=== PATIENT | female | born 1950 | race Caucasian/White ===

== ENCOUNTER 2022-04-13 15:42 | Outpatient (CLI) | payer OTHER, SELFPAY ==
--- NOTE | ~2022-04-13 | CT_ITS ---
EXAMINATION: CT abdomen pelvis wo con DATE: 04/13/2022 16:05 INDICATION: Abdominal pain. Weight loss. TECHNIQUE: Computed tomography (CT) of the abdomen and pelvis was performed without intravenous contr ast. Automated exposure control and iterative reconstruction technique were employed. The dose-length product was 1097.10 mGy-cm. COMPARISON: CT abdomen and pelvis 10/24/2011 FINDINGS: The visualized portions of the lung bases demonstrate mild atelectasis and mild chronic kayla g disease. No pleural effusion. The heart size is normal. No pericardial effusion. There are coronary artery calcifications. The liver, spleen, pancreas, adrenal glands, and kidneys are normal. There is no urolithiasis. There are no dilated loops of bowel. The appendix is normal. There are no pathologi crystal enlarged lymph nodes. There is no free intraperitoneal fluid. There is internal fixation of pro ximal right femur. There are chronic compression fractures of L1 and L5. IMPRESSION: 1. No etiology for the patient's symptoms. Reviewed, dictated and finalized at location B.
== END 2022-04-13 15:43 | disposition home or self-care (01) ==
PROVIDERS: PCP Family Medicine; Visit Provider Family Medicine
DX: R63.4 Abnormal weight loss (principal); R63.0 Anorexia; S32.019A Unspecified fracture of first lumbar vertebra, initial encounter for closed fracture; S32.059A Unspecified fracture of fifth lumbar vertebra, initial encounter for closed fracture
CPT/HCPCS: 74176

== ENCOUNTER 2022-06-25 15:00 | Outpatient (RCR) | payer OTHER, SELFPAY ==
--- NOTE | 2022-05-22 13:34 | PTOPEVAL ---
PHYSICAL THERAPY EVALUATION AND PLAN OF CARE 05-22-22 Thank you for referring Carol Beltre to [facility] for the diagnosis of dizziness. Saumya is scheduled to be seen for therapy? 0-2 x/week for 5 weeks, depending upon the severity of her vestibular symptoms. Please review, sign, date and return this plan of care CORBY. I agree with and certify that the following plan of care is medically necessary. Referring Physician Date Attending Provider: Tasha Malone MD Outpatient Past Medical History Past Medical History Source of Past Medical History Patient Neurological History Hx Neurological Disorders No Significant History Cardiovascular History Hx Hypercholesterolemia Yes: meds Hx Hypertension Yes: meds Respiratory History Hx Respiratory Disorders No Significant History Gastrointestinal History Hx Cholecystectomy Yes Hx Hernia Yes: surgical repair Musculoskeletal History Hx Back Pain Yes: intermittent Hx Orthopedic Surgery Yes: R and L knee arthroscopy; R rotator cuff repair; R elbow surgery;L wrist fx Hx Other Musculoskeletal Disorders Yes: lumbar compression fracture;R femur ORIF; Endocrine History Hx Diabetes Yes: meds HEENT History Hx Other HEENT Disorders Yes: glasses- bifocals,last eye exam 1 yr ago; issues with double vision Evaluation Information Problem Diagnosis dizziness Onset February 2022 Prior Level of Function Activity Level (Last 3 Months) Occupation retired Comments Additional Prior Level of Function indep with home and self care Comments tasks; Pain Assessment Pain Score Pain Score 0: Self Report Cervical ROM Comments cervical ROM active rotation R /L and flexion/extension- ranges WNL and no pain in neck Gait Assessment Ambulation Assistive Devices None Ambulation Distance 150 Query Text:(Feet) Ambulation Destination In Corridor Ambulation Ability Standby Assistance Additional Ambulation Comments to dept with unsteady, slow gait pattern, reaching out to [address] way railing for support; loss of balance with turning to enter the treatment room Vestibular Evaluation Past Vestibular History Back Pain,Medication Changes, Sinus/Allergy Issues,Visual Issues Medical History Comments change in diabetic med few months ago; sometimes have
--- NOTE | 2022-06-22 13:09 | PCPTNOTE ---
Patient's appointment cancelled due to staff being out of the office.
--- NOTE | 2022-06-25 15:46 | PTOPEVAL ---
PHYSICAL THERAPY DISCHARGE REPORT 06-25-22 Refer to the clinical summary below, for her status today, compared to the initial evaluation. The goals were partially achieved. She will be discharged from PT at this time. Thank you for referring Carol Beltre to [facility].? Please review, sign, date and return this Discharge report CORBY. I agree with and certify that the following plan of care is medically necessary. Referring Physician Date Attending Provider: Tasha Malone MD Subjective Information Saumya reports: only time feel Query Text:As Reported By Patient/ dizziness or maybe more off Family balance is rolling over in bed , eyes are closed and feel like head is not moving with body; when walking a straight path, feel fine, but with turning have balance issues; have not had any falls; am careful with turning, both R and L have problems maybe little more problems to L; have not gone on her stairs at home yet; continue to have sinus issues- have year round allergy problems; Pain Assessment Self Report Self Report Pain Level 0 Vestibular Testing Comments - supine/sit and sit to stand without s/s - 360' turn to L -- feel funny , like whole body not turning at the same time/ R feels better than to L - pick item up off floor- no s /s - stand and look to ceiling- loss of balance, have to concentrate to keep balance - 20' side step R, side step L , backwards, heel toe walking; - walking with turns into R and L doorways- 2x each- had 1 loss of balance to L and grabbed door frame to catch herself; - single leg standing L 3-7 sec and R 2-4 seconds - B leg press 80# x 20 reps, then reported pain in knees - standing hip exercises with red theraband R and L with 1 UE hold: hip flex, abduct and extension x 15 reps;
== END 2022-06-26 11:03 | disposition home or self-care (01) ==
LOC: ANHPT 15:00
PROVIDERS: PCP Family Medicine; Visit Provider Family Medicine
DX: R42 Dizziness and giddiness (principal)
CPT/HCPCS: 97110; 97161; 97530

== ENCOUNTER → 2022-11-12 13:38 | Outpatient (CLI) | payer OTHER, SELFPAY ==
--- NOTE | ~2022-11-12 | XR_ITS ---
AP and oblique views of the left ribs Clinical History: Pain Findings: No rib fracture is seen. Osseous alignment is anatomic. Lungs are clear, without focal cons olidation or pleural effusion. Cardiomediastinal contour is within normal limits. Soft tissues are un remarkable. Impression: No rib fracture is seen. Reviewed, dictated and finalized at location [] E OFFICER Impression: No rib fracture is seen.
== END ==
PROVIDERS: PCP Family Medicine; Visit Provider Physician Assistant
DX: R07.81 Pleurodynia (principal)
CPT/HCPCS: 71100

== ENCOUNTER 2024-05-31 14:51 | Outpatient (CLI) | payer OTHER, SELFPAY ==
--- NOTE | ~2024-05-31 | DEXA_ITS ---
? Bone Density Report? Name:? HAWK STEELE A Patient ID:??? [id number] Age:? 73 Sex:? Female Ethnicity:? White Date of : 1950 Indication: postmenopausal; screening for osteoporosis; height loss; prior fracture; hysterectomy; Referring Provider: JOHNMARTIN Study: Bone densitometry was performed. Exam Date: May 31, 2024 Accession number: [id number] Bone Density: Region? BMD??? T-score? Z-score?? Classification AP Spine(L2, L3, L4)? 1.327??? 2.3?4.8? Normal Femoral Neck (Left)? 0.693?? -1.4? 0.7? Osteopenia Total Hip (Left)? 1.007?? ?0.5? 2.4? Normal World Health Organization criteria for BMD impression classify patients as: Normal (T-score at or above -1.0), Osteopenia (T-score between -1.0 and -2.5), or Osteoporosis (T-score at or below -2.5). 10-year Fracture Risk: FRAX not reported because: ? Prior hip or vertebral fracture Clinical Information Provided by Patient: Have had a previous hip or vertebral fracture Has had a low trauma fracture Has used the following medications: Vitamin D Has the following medical conditions: Hysterectomy Patient maximum height was 67 Menopause Age: 58 No regular weight bearing exercise Drinks caffeinated beverages Onset of menses at age 10 Number of children 7 Impression: The patient has low bone mass, based on the Left Femoral Neck T- score. The patient has risk factors, including: previous fracture. Discussion: INCREASED RISK OF FRACTURE DUE TO HISTORY OF FRACTURE. The patient's previous fracture puts the patient at high risk of a future fracture. In untreated patients, the risk of osteoporotic fracture increases approximately two-fold for each 1.0 SD decrease in T-score.? Low bone density is not the only risk factor for fracture; also consider factors such as patient's age, frailty or poor health, risk of falling, risk of injury, previous osteoporotic fracture, family history of osteoporosis, cigarette smoking, low body weight, etc.? Not everyone with a low trauma fracture has osteoporosis; osteomalacia and other metabolic bone disorders should also be considered. Patients who have osteoporosis should be evaluated for specific diseases and conditions (secondary causes) that may cause or contribute to bone loss and fracture risk. National Osteoporosis Foundation (NOF) recommends pharmacologic intervention for patients with a prior hip or vertebral fracture regardless of BMD T-score. The patient should follow a healthful lifestyle (good nutrition with adequate calcium and vitamin D, and appropriate weight-bearing exercise). Follow-Up: Consider a repeat BMD and Vertebral Fracture Assessment (VFA) exam in 2 years or sooner if medically necessary, to reassess this patie
== END 2024-05-31 14:52 | disposition home or self-care (01) ==
PROVIDERS: PCP Family Medicine; Visit Provider Internal Medicine Endocrinology, Diabetes & Metabolism
DX: Z78.0 Asymptomatic menopausal state (principal); M85.88 Other specified disorders of bone density and structure, other site
CPT/HCPCS: 77080

== ENCOUNTER 2024-06-16 11:20 | Outpatient (CLI) | payer OTHER, SELFPAY ==
--- NOTE | ~2024-06-16 | CT_ITS ---
EXAMINATION: CT abdomen wo/w con DATE: 06/16/2024 12:21 INDICATION: Adrenal gland disorder. Type 2 diabetes. TECHNIQUE: Computed tomography (CT) of the abdomen was performed without and with 100 mL Omnipaque-35 0 intravenous contrast. Automated exposure control and iterative reconstruction technique were employ ed. The dose-length product was 2425.39 mGy-cm. COMPARISON: CT dated 04/13/2022 FINDINGS: Mild dependent atelectasis in the right lower lobe with additional unchanged scattered atelectasis/sc arring at the bilateral lung bases. Heart size is normal. Atherosclerotic coronary artery calcificati on. Aortic valve calcification. No pericardial or pleural effusion. Diffuse hepatic steatosis. Unchan ged mild intra and extra hepatic biliary ductal dilation likely related to prior cholecystectomy. Spl een, pancreas and bilateral adrenal glands are normal. There are couple subcentimeter cysts at the lo wer pole of the right kidney. Visualized portion of the bowels including the base of the appendix rupesh ear normal. No pathologically enlarged abdominal lymphadenopathy. Unchanged chronic L1 compression fr acture. There are additional chronic superior endplate compression fractures at T10, T11 and T12 whic h are new since the prior study. IMPRESSION: 1. Normal bilateral adrenal glands. 2. Diffuse hepatic steatosis. Reviewed, dictated and finalized at location A.
[2024-06-16 11:40] LABS: Estimated Glomerular Filt Rate 44
== END 2024-06-16 11:21 ==
PROVIDERS: PCP Physician Assistant; Visit Provider Internal Medicine Endocrinology, Diabetes & Metabolism
DX: E11.65 Type 2 diabetes mellitus with hyperglycemia (principal); E27.9 Disorder of adrenal gland, unspecified; K76.0 Fatty (change of) liver, not elsewhere classified
CPT/HCPCS: 74170; Q9967

== ENCOUNTER 2024-10-12 12:52 | Outpatient (CLI) | payer OTHER, SELFPAY ==
--- NOTE | ~2024-10-12 | MR_ITS ---
EXAMINATION: MR brain/brain stem wo/w con DATE: 10/12/2024 13:53 INDICATION: Benign neoplasm of pituitary gland. TECHNIQUE: Magnetic resonance imaging (MRI) of the brain and brainstem was performed without and with 19 mL MultiHance intravenous contrast. COMPARISON: None. FINDINGS: The pituitary is normal in size with height of 7 mm . There are scattered areas of nonspeci fic increased T2-weighted signal intensity in the cerebral white matter, which is within normal limit s for the patient's age. There is a 1.8 x 1.4 cm enhancing mass in right cerebellopontine angle with low signal on T1 and T2-weighted imaging. There is a 2.2 x 1.3 cm enhancing extra-axial mass overlyin g left frontal lobe abutting the falx, consistent with a meningioma. There is an 8 x 4 mm enhancing e xtra-axial mass medial to right occipital lobe abutting the falx, consistent with a meningioma. There is no acute ischemic infarct or intracranial hemorrhage. The ventricles are normal in size. The orbi ts are normal. The paranasal sinuses are clear. The mastoid air cells are normal. IMPRESSION: 1. Normal pituitary. 2. 1.8 cm mass in right cerebellopontine angle, most likely a meningioma. 3. 2.2 cm parafalcine meningioma abutting left frontal lobe. 4. 8 mm parafalcine meningioma abutting right occipital lobe. Reviewed, dictated and finalized at location A. RED TRANSPORT SERVICE MANAGER
== END 2024-10-12 12:53 | disposition home or self-care (01) ==
LOC: MICIMG 12:53
PROVIDERS: PCP Physician Assistant; Visit Provider Internal Medicine Endocrinology, Diabetes & Metabolism
DX: D32.0 Benign neoplasm of cerebral meninges (principal); D35.2 Benign neoplasm of pituitary gland
CPT/HCPCS: 70553; A9577

== ENCOUNTER 2025-01-16 08:53 | Outpatient (CLI) | payer OTHER, SELFPAY ==
--- NOTE | ~2025-01-16 | MR_ITS ---
EXAMINATION: MR brain/brain stem wo/w con DATE: 01/16/2025 09:32 INDICATION: Meningiomas. TECHNIQUE: Magnetic resonance imaging (MRI) of the brain and brainstem was performed without and with 15 mL MultiHance intravenous contrast. COMPARISON: Brain MRI 10/12/2024 FINDINGS: There are scattered areas of nonspecific increased T2-weighted signal intensity in the cere bral white matter, which is within normal limits for the patient's age. There is a 1.8 x 1.4 cm enhan cing mass in right cerebellopontine angle with low signal on T1 and T2-weighted imaging. There is a 2 .2 x 1.3 cm enhancing extra-axial mass overlying left frontal lobe abutting the falx, consistent with a meningioma. There is an 8 x 4 mm enhancing extra-axial mass medial to right occipital lobe abuttin g the falx, consistent with a meningioma. There is no acute ischemic infarct or intracranial hemorrha ge. The ventricles are normal in size. The orbits are normal. There is mild mucosal thickening in the paranasal sinuses. The mastoid air cells are normal. IMPRESSION: 1. Stable 1.8 cm mass in right cerebellopontine angle, most likely a meningioma. 2. 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 3. Stable 8 mm parafalcine meningioma abutting right occipital lobe. Reviewed, dictated and finalized at location A. GLIDING INSTRUCTOR IMPRESSION: 1. Stable 1.8 cm mass in right cerebellopontine angle, most likely a meningioma . 2. 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 3. Stable 8 mm parafalcine meningioma abutting right occipital lobe.
== END 2025-01-16 08:54 | disposition home or self-care (01) ==
LOC: MICIMG 08:54
PROVIDERS: PCP Physician Assistant; Visit Provider Neurological Surgery
DX: D32.0 Benign neoplasm of cerebral meninges (principal)
CPT/HCPCS: 70553; A9577

== ENCOUNTER 2025-06-20 10:39 | Outpatient (CLI) | payer OTHER, SELFPAY ==
--- NOTE | ~2025-06-20 | US_ITS ---
US renal BI 06/20/2025 11:09 Procedure: Realtime transabdominal ultrasound of the kidneys and bladder. Indication: Abnormal renal function tests Comparison: No prior studies for comparison. Findings: Renal echotexture is normal bilaterally without hydronephrosis, contour deforming mass or r enal calculus. There is a right renal cyst measuring 8 mm. The right kidney measures 9.9 cm and left kidney measures 11.2 cm. Bladder within normal limits. Impression: 1: Right renal cyst measuring 8 mm. Reviewed, dictated and finalized at location A. Impression: 1: Right renal cyst measuring 8 mm.
== END 2025-06-20 10:40 | disposition home or self-care (01) ==
LOC: MICIMG 10:39
PROVIDERS: PCP Physician Assistant; Visit Provider Internal Medicine Nephrology
DX: R94.4 Abnormal results of kidney function studies (principal); N28.1 Cyst of kidney, acquired
CPT/HCPCS: 76775

== ENCOUNTER 2025-10-16 09:43 | Outpatient (CLI) | payer OTHER, SELFPAY ==
--- NOTE | ~2025-10-16 | US_ITS ---
ULTRASOUND ABDOMEN LIMITED (RIGHT UPPER QUADRANT) Clinical History: Fatty liver Comparison: CT abdomen pelvis 06/16/2024 Technique: Right upper quadrant sonography Findings: Liver: Enlarged. Echogenic. No intrahepatic biliary ductal dilatation. Normal hepatopedal flow main portal vein. Common Duct: Normal caliber. 6 mm. Gallbladder: Removed. Pancreas: Unremarkable. IMPRESSION: 1. No acute findings. 2. Hepatomegaly, with steatosis and/or hepatocellular disease. Reviewed, dictated and finalized at location R. S CLASSIFIER
== END 2025-10-16 09:44 | disposition home or self-care (01) ==
LOC: MICIMG 09:43
PROVIDERS: PCP Physician Assistant; Visit Provider Internal Medicine Endocrinology, Diabetes & Metabolism
DX: K76.0 Fatty (change of) liver, not elsewhere classified (principal)
CPT/HCPCS: 76705

== ENCOUNTER 2025-10-23 17:37 | Emergency (ER) | payer OTHER, MEDICARE, SELFPAY ==
--- OUTSIDE RECORDS SUMMARY | 2025-03-12 06:40 | XMS_ITS ---
Author Organization [facility] Address [address] [place] [address] Care Team Providers Care Wet Finisher Wool Name Role Phone Sarah Kebede [phone] REASON FOR VISIT 1 month f/u Encounters Encounter Location Date Provider Diagnosis [facility]MO Dr. Kebede [address] [place] [id number] 03/12/2025 Sarah Kebede Plan Of Treatment Next Appt Details Provider Name:Sarah Kebede, 03:00:00 PM, [address] [place] [address], [id number], Progress Notes * CHARLI STEELEHDOB: 8 (75 yo F)Acc No.[id number]:03/12/2025 Progress Notes Patient: HAWK HAYES Provider: Larisa Kebede MD :1950 A ge:74 Y S ex:Female Date:03/12/2025 Address:[address] [place] [address] [id number] Subjective: * Chief Complaints: * 1 month f/u * Electronic signature of Josse Kebede MD on 10/23/2025 at 05:39 PM EXPERIMENTAL WORKER Sign off status: Pending * Provider: Larisa Kebede MD Date: 0 03/12/2025 Generated for Printi ng/Faxing/eTransmitting on: 1 12/23/2024 05:39 PM EXPERIMENTAL WORKER
--- NOTE | ~2025-10-23 | CT_ITS ---
EXAMINATION: CT abdomen pelvis w con DATE: 10/23/2025 19:05 INDICATION: Abdominal pain, constipation. TECHNIQUE: Computed tomography (CT) of the abdomen and pelvis was performed without intravenous contrast. Automated exposure control and iterative reconstruction technique were employed. The dose-length product was 469.99 mGy-cm. COMPARISON: Ultrasound upper abdomen 10/16/2025. CT dated 06/16/2024. FINDINGS: Lung bases do not show acute findings. No focal lesions of liver and spleen. Gallbladder is absent. Pancreas and kidneys do not show acute findings. Moderate atherosclerotic aorta. No evidence of small bowel obstruction. Fecal impaction of the rectosigmoid colon. Osteopenic vertebrae. Compression fractures of L5 and L1 vertebrae of undetermined age. IMPRESSION: 1. No acute findings noted in the upper abdomen and pelvis. 2. Significant fecal impaction of the rectosigmoid colon. 3. Osteopenic vertebrae. Compression fractures of L1 and L5 vertebrae of undetermined age. Reviewed, dictated and finalized at location [facility] IMPRESSION: 1. No acute findings noted in the upper abdomen and pelvis. 2. Significant fecal impaction of the rectosigmoid colon. 3. Osteopenic vertebrae. Compression fractures of L1 and L5 vertebrae of undete rmined age.
[2025-10-23 17:39] VITALS: BP 183/97; PULSE 91; RESP 16; TEMP 36.5; O2SAT 99
--- OUTSIDE RECORDS SUMMARY | 2025-10-23 17:40 | XMS_ITS | Patient Health Record ---
Author Organization [facility] Address [address] [place], [place] [address] Care Team Providers Care Soap Mixer Name Role Phone Sarah Kebede Unavailable [phone] Allergies Allergen (clinical drug ingredient) Drug/Non Drug Allergy documented on EMR Reaction Allergy Type Onset Date Status ADHESIVE TAPE Unknown Allergy Active Results Component Value Reference Range Flag Notes .LIPID PANEL, STANDARD (7600 ) Reviewed date:09/24/2025 10:00:02 AM Interpretation: Performing Lab:[facility]-Acbxyj60386 Shivani Vera, KslorfSS[address] Kayli Banks MD Notes/Report: FASTING:YES FASTING: YES CHOLESTEROL, TOTAL 136 <200 mg/dL N HDL CHOLESTEROL 39 > OR = 50 mg/dL L TRIGLYCERIDES 221 <150 mg/dL H If a non-fasting specimen was collected, consider repeat triglyceride testing on a fasting specimen if clinically indicated. Hernández et al. J. of Clin. Lipidol. 2015;9:129-169. LDL-CHOLESTEROL 69 N Reference range: <100 Desirable range <100 mg/dL for primary prevention; <70 mg/dL for patients with CHD or diabetic patients with > or = 2 CHD risk factors. LDL-C is now calculated using the David-Ja calculation, which is a validated novel method providing better accuracy than the Friedewald equation in the estimation of LDL-C. David SS et al. JESSICA. 2013;310(19): 3650-9839 (http://ideeli.[facility]/faq/AYZ016) CHOL/HDLC RATIO 3.5 <5.0 (calc) N NON HDL CHOLESTEROL 97 <130 mg/dL (calc) N For patients with diabetes plus 1 major ASCVD risk factor, treating to a non-HDL-C goal of <100 mg/dL (LDL-C of <70 mg/dL) is considered a therapeutic option. .COMPREHENSIVE METABOLIC VILLALTA (55314) [facility] Reviewed date:09/24/2025 09:59:56 AM Interpretation: Performing Lab:HELEN [facility]-Phwupr91800 Shivani Farooq, YvolqdUL[address] Kayli Banks MD Notes/Report: FASTING:YES FASTING: YES GLUCOSE 130 65-99 mg/dL H Fasting reference interval For someone without known diabetes, a glucose value >125 mg/dL indicates that they may have diabetes and this should be confirmed with a follow-up test. UREA NITROGEN (BUN) 55 7-25 mg/dL H CREATININE 2.70 0.60-1.00 mg/dL H EGFR 18 > OR = 60 mL/min/1.73m2 L BUN/CREATININE RATIO 20 6-22 (calc) N SODIUM 127 135-146 mmol/L L POTASSIUM 4.1 3.5-5.3 mmol/L N CHLORIDE 89 98-110 mmol/L L CARBON DIOXIDE 25 20-32 mmol/L N CALCIUM 9.4 8.6-10.4 mg/dL N PROTEIN, TOTAL 6.9 6.1-8.1 g/dL N ALBUMIN 4.3 3.6-5.1 g/dL N GLOBULIN 2.6 1.9-3.7 g/dL (calc) N ALBUMIN/GLOBULIN RATIO 1.7 1.0-2.5 (calc) N BILIRUBIN, TOTAL 0.4 0.2-1.2 mg/dL N ALKALINE PHOSPHATASE 41 37-153 U/L N AST 15 10-35 U/L N ALT 19 6-29 U/L N .CBC (INCLUDES DIFF/PLT) (63 99) Reviewed date:09/24/2025 09:59:49 AM Interpretation: Performing Lab:HE[facility]-Wohexk82817 Shivani Farooq, WxatfxBW[address] Kayli Banks MD Notes/Report: FASTING:YES FASTING: YES WHITE BLOOD CELL COUNT 9.0 3.8-10.8 Thousand/uL N RED BLOOD CELL COUNT 4.32 3.80-5.10 Million/uL N HEMOGLOBIN 12.9 11.7-15.5 g/dL N HEMATOCRIT 39.1 35.0-45.0 % N MCV 90.5 80.0-100.0 fL N MCH 29.9 27.0-33.0 pg N MCHC 33.0 32.0-36.0 g/dL N For adults, a slight decrease in the calculated MCHC value (in the range of 30 to 32 g/dL) is most likely not clinically significant; however, it should be interpreted with caution in correlation with other red cell parameters and the patient's clinical condition. RDW 12.1 11.0-15.0 % N PLATELET COUNT 221 140-400 Thousand/uL N MPV 11.6 7.5-12.5 fL N ABSOLUTE NEUTROPHILS 6624 5250-9583 cells/uL N ABSOLUTE LYMPHOCYTES 9043 233-3569 cells/uL N ABSOLUTE MONOCYTES 549 200-950 cells/uL N ABSOLUTE EOSINOPHILS 36 15-500 cells/uL N ABSOLUTE BASOPHILS 63 0-200 cells/uL N NEUTROPHILS 73.6 N LYMPHOCYTES 19.2 N MONOCYTES 6.1 N EOSINOPHILS 0.4 N BASOPHILS 0.7 N .HEMOGLOBIN A1c (496) Reviewed date:09/24/2025 12:26:25 PM Interpretation: Performing Lab:[facility] [address] [facility]kc[facility]ID[address] Kayli Banks Notes/Report: FASTING:YES FASTING: YES HEMOGLOBIN A1c 6.0 <5.7 % of total Hgb H For someone without known diabetes, a hemoglobin A1c value between 5.7% and 6.4% is consistent with prediabetes and should be confirmed with a follow-up test. For someone with known diabetes, a value <7% indicates that their diabetes is well controlled. A1c targets should be individualized based on duration of diabetes, age, comorbid conditions, and other considerations. This assay result is consistent with an increased risk of diabetes. Currently, no consensus exists regarding use of hemoglobin A1c for diagnosis of diabetes for children. VITAMIN B12/FOLATE, SERUM PA JERMAINE (7019) Reviewed date:09/24/2025 09:59:32 AM Interpretation: Performing Lab:HELEN [facility]-Dwensc21887 Shivani Farooq, BdglphRQ[address] Kayli Banks MD Notes/Report: FASTING:YES FASTING: YES VITAMIN B12 7857 631-8261 pg/mL H FOLATE, SERUM 9.6 N Reference Range Low: <3.4 Borderline: 3.4-5.4 Normal: >5.4 T4, FREE (866) Reviewed date:09/24/2025 09:59:43 AM Interpretation: Performing Lab:Kristy [facility]-Mgjhdh90733 Shivani Farooq, LhkbddTX[address] Kayli Banks MD Notes/Report: FASTING:YES FASTING: YES T4, FREE 1.4 0.8-1.8 ng/dL N TSH (899) Reviewed date:09/24/2025 09:59:37 AM Interpretation: Performing Lab:Kristy [facility]-Mjozul59642Ilan Farooq, MdedhqWT[address] Kayli Banks MD Notes/Report: FASTING:YES FASTING: YES TSH 2.33 0.40-4.50 mIU/L N T3, FREE (55790) Reviewed date:09/24/2025 09:59:27 AM Interpretation: Performing Lab:Kristy [facility]-Lulu Farooq, ZlpajgVY[address] Kayli Banks MD Notes/Report: FASTING:YES FASTING: YES T3, FREE 2.7 2.3-4.2 pg/mL N COMPREHENSIVE METABOLIC PANE L Reviewed date:11/14/2024 09:58:13 AM Interpretation: Performing Lab:Kristy [facility]-[place], [address] Shivani Farooq, HELEN [place], [address] Kayli Banks MD Notes/Report: FASTING:YES COLLECTION KIT GIVEN TO PATIENT. PATIENT ADVISED TO RETURN. FASTING: YES Fasting reference interval For someone without known diabetes, a glucose value >125 mg/dL indicates that they may have diabetes and this should be confirmed with a follow-up test. GLUCOSE 166 65-99 mg/dL H UREA NITROGEN (BUN) 32 7-25 mg/dL H CREATININE 0.98 0.60-1.00 mg/dL N EGFR 60 > OR = 60 mL/min/1.73m2 N BUN/CREATININE RATIO 33 6-22 (calc) H SODIUM 136 135-146 mmol/L N POTASSIUM 4.7 3.5-5.3 mmol/L N CHLORIDE 99 98-110 mmol/L N CARBON DIOXIDE 26 20-32 mmol/L N CALCIUM 10.0 8.6-10.4 mg/dL N PROTEIN, TOTAL 7.1 6.1-8.1 g/dL N ALBUMIN 4.5 3.6-5.1 g/dL N GLOBULIN 2.6 1.9-3.7 g/dL (calc) N ALBUMIN/GLOBULIN RATIO 1.7 1.0-2.5 (calc) N BILIRUBIN, TOTAL 0.5 0.2-1.2 mg/dL N ALKALINE PHOSPHATASE 51 37-153 U/L N AST 11 10-35 U/L N ALT 14 6-29 U/L N T3, FREE Reviewed date:11/14/2024 09:58:13 AM Interpretation: Performing Lab:Kristy C[facility]ES, [address] [place], [address] Kayli Banks MD Notes/Report: FASTING:YES COLLECTION KIT GIVEN TO PATIENT. PATIENT ADVISED TO RETURN. FASTING: YES T3, FREE 2.8 2.3-4.2 pg/mL N HEMOGLOBIN A1c Reviewed date:11/14/2024 09:58:13 AM Interpretation: Performing Lab:[facility], [address], [place], [address] Kayli Banks Notes/Report: FASTING:YES COLLECTION KIT GIVEN TO PATIENT. PATIENT ADVISED TO RETURN. FASTING: YES For someone without known diabetes, a hemoglobin A1c value of 6.5% or greater indicates that they may have diabetes and this should be confirmed with a follow-up test. For someone with known diabetes, a value <7% indicates that their diabetes is well controlled and a value greater than or equal to 7% indicates suboptimal control. A1c targets should be individualized based on duration of diabetes, age, comorbid conditions, and other considerations. Currently, no consensus exists regarding use of hemoglobin A1c for diagnosis of diabetes for children. HEMOGLOBIN A1c 7.9 <5.7 % of total Hgb H CBC (INCLUDES DIFF/PLT) Reviewed date:11/14/2024 09:58:13 AM Interpretation: Performing Lab:Kristy [facility], [address] [place], [address] Kayli Banks MD Notes/Report: FASTING:YES COLLECTION KIT GIVEN TO PATIENT. PATIENT ADVISED TO RETURN. FASTING: YES For adults, a slight decrease in the calculated MCHC value (in the range of 30 to 32 g/dL) is most likely not clinically significant; however, it should be interpreted with caution in correlation with other red cell parameters and the patient's clinical condition. WHITE BLOOD CELL COUNT 13.3 3.8-10.8 Thousand/uL H RED BLOOD CELL COUNT 4.85 3.80-5.10 Million/uL N HEMOGLOBIN 13.7 11.7-15.5 g/dL N HEMATOCRIT 43.7 35.0-45.0 % N MCV 90.1 80.0-100.0 fL N MCH 28.2 27.0-33.0 pg N MCHC 31.4 32.0-36.0 g/dL L RDW 12.8 11.0-15.0 % N PLATELET COUNT 212 140-400 Thousand/uL N MPV 12.2 7.5-12.5 fL N ABSOLUTE NEUTROPHILS 9563 6150-1998 cells/uL H ABSOLUTE LYMPHOCYTES 2607 850-3900 cells/uL N ABSOLUTE MONOCYTES 758 200-950 cells/uL N ABSOLUTE EOSINOPHILS 306 15-500 cells/uL N ABSOLUTE BASOPHILS 67 0-200 cells/uL N NEUTROPHILS 71.9 N LYMPHOCYTES 19.6 N MONOCYTES 5.7 N EOSINOPHILS 2.3 N BASOPHILS 0.5 N MICROALBUMIN, RANDOM URINE ( W/CREATININE) Reviewed date:11/14/2024 09:58:13 AM Interpretation: Performing Lab:[place], [facility]-[place], [address] [place], [address] Kayli Banks MD Notes/Report: SPLIT 11/13/2024 FROM [id number] Reference Range: Reference Range Not established The ADA defines abnormalities in albumin excretion as follows: Albuminuria Category Result (mg/g creatinine) Normal to Mildly increased <30 Moderately increased 30-299 Severely increased > OR = 300 The ADA recommends that at least two of three specimens collected within a 3-6 month period be abnormal before considering a patient to be within a diagnostic category. CREATININE, RANDOM URINE 46 20-275 mg/dL N ALBUMIN, URINE 4.0 See Note: mg/dL N ALBUMIN/CREATININE RATIO, RANDOM URINE 87 <30 mg/g creat H LIPID PANEL Reviewed date:11/14/2024 09:58:13 AM Interpretation: Performing Lab:[facility], [address] [address] [facility] [place], [address] Kayli Banks MD Notes/Report: FASTING:YES COLLECTION KIT GIVEN TO PATIENT. PATIENT ADVISED TO RETURN. FASTING: YES If a non-fasting specimen was collected, consider repeat triglyceride testing on a fasting specimen if clinically indicated. Edgar et al. J. of Clin. Lipidol. 2015;9:129-169. Reference range: <100 Desirable range <100 mg/dL for primary prevention; <70 mg/dL for patients with CHD or diabetic patients with > or = 2 CHD risk factors. LDL-C is now calculated using the David-Peres calculation, which is a validated novel method providing better accuracy than the Friedewald equation in the estimation of LDL-C. David SS et al. JESSICA. 2013;310(19): 7856-3979 (http://ideeli.[employer]/faq/MUH702) For patients with diabetes plus 1 major ASCVD risk factor, treating to a non-HDL-C goal of <100 mg/dL (LDL-C of <70 mg/dL) is considered a therapeutic option. CHOLESTEROL, TOTAL 168 <200 mg/dL N HDL CHOLESTEROL 39 > OR = 50 mg/dL L TRIGLYCERIDES 235 <150 mg/dL H LDL-CHOLESTEROL 96 N CHOL/HDLC RATIO 4.3 <5.0 (calc) N NON HDL CHOLESTEROL 129 <130 mg/dL (calc) N T4, FREE Reviewed date:11/14/2024 09:58:13 AM Interpretation: Performing Lab:[facility], [address] [place], [address] Kayli Banks MD Notes/Report: FASTING:YES COLLECTION KIT GIVEN TO PATIENT. PATIENT ADVISED TO RETURN. FASTING: YES T4, FREE 1.1 0.8-1.8 ng/dL N TSH Reviewed date:11/14/2024 09:58:13 AM Interpretation: Performing Lab:[facility], [address] [place], [address] Kayli Banks MD Notes/Report: FASTING:YES COLLECTION KIT GIVEN TO PATIENT. PATIENT ADVISED TO RETURN. FASTING: YES TSH 2.12 0.40-4.50 mIU/L N COMPREHENSIVE METABOLIC PANE L Reviewed date:12/18/2024 08:38:05 AM Interpretation: Performing Lab:Kristy [facility]-[place], [address] [place], [address] Kayli Banks MD Notes/Report: Fasting reference interval For someone without known diabetes, a glucose value between 100 and 125 mg/dL is consistent with prediabetes and should be confirmed with a follow-up test. GLUCOSE 122 65-99 mg/dL H UREA NITROGEN (BUN) 24 7-25 mg/dL N CREATININE 1.55 0.60-1.00 mg/dL H EGFR 35 > OR = 60 mL/min/1.73m2 L BUN/CREATININE RATIO 15 6-22 (calc) N SODIUM 141 135-146 mmol/L N POTASSIUM 4.6 3.5-5.3 mmol/L N CHLORIDE 103 98-110 mmol/L N CARBON DIOXIDE 21 20-32 mmol/L N CALCIUM 9.9 8.6-10.4 mg/dL N PROTEIN, TOTAL 6.8 6.1-8.1 g/dL N ALBUMIN 4.4 3.6-5.1 g/dL N GLOBULIN 2.4 1.9-3.7 g/dL (calc) N ALBUMIN/GLOBULIN RATIO 1.8 1.0-2.5 (calc) N BILIRUBIN, TOTAL 0.4 0.2-1.2 mg/dL N ALKALINE PHOSPHATASE 42 37-153 U/L N AST 15 10-35 U/L N ALT 15 6-29 U/L N .COMPREHENSIVE METABOLIC VILLALTA EL (21331) CMP Reviewed date:01/24/2025 10:35:15 PM Interpretation: Performing Lab:HE[facility]-Ybwkxx87965 Shivani Farooq, KafsblUQ[address] Kayli Banks MD Notes/Report: GLUCOSE 126 65-99 mg/dL H Fasting reference interval For someone without known diabetes, a glucose value >125 mg/dL indicates that they may have diabetes and this should be confirmed with a follow-up test. UREA NITROGEN (BUN) 27 7-25 mg/dL H CREATININE 2.04 0.60-1.00 mg/dL H EGFR 25 > OR = 60 mL/min/1.73m2 L BUN/CREATININE RATIO 13 6-22 (calc) N SODIUM 139 135-146 mmol/L N POTASSIUM 4.4 3.5-5.3 mmol/L N CHLORIDE 98 98-110 mmol/L N CARBON DIOXIDE 28 20-32 mmol/L N CALCIUM 9.9 8.6-10.4 mg/dL N PROTEIN, TOTAL 6.9 6.1-8.1 g/dL N ALBUMIN 4.1 3.6-5.1 g/dL N GLOBULIN 2.8 1.9-3.7 g/dL (calc) N ALBUMIN/GLOBULIN RATIO 1.5 1.0-2.5 (calc) N BILIRUBIN, TOTAL 0.5 0.2-1.2 mg/dL N ALKALINE PHOSPHATASE 47 37-153 U/L N AST 14 10-35 U/L N ALT 13 6-29 U/L N .COMPREHENSIVE METABOLIC VILLALTA EL (61502) CMP Reviewed date:07/04/2025 11:24:19 AM Interpretation: Performing Lab:HELEN, [facility]-Ckmmna96693 Shivani Farooq, SzightFB[address] Kayli Banks MD Notes/Report: GLUCOSE 122 65-99 mg/dL H Fasting reference interval For someone without known diabetes, a glucose value between 100 and 125 mg/dL is consistent with prediabetes and should be confirmed with a follow-up test. UREA NITROGEN (BUN) 43 7-25 mg/dL H CREATININE 1.53 0.60-1.00 mg/dL H EGFR 35 > OR = 60 mL/min/1.73m2 L BUN/CREATININE RATIO 28 6-22 (calc) H SODIUM 135 135-146 mmol/L N POTASSIUM 4.4 3.5-5.3 mmol/L N CHLORIDE 99 98-110 mmol/L N CARBON DIOXIDE 27 20-32 mmol/L N CALCIUM 9.3 8.6-10.4 mg/dL N PROTEIN, TOTAL 6.4 6.1-8.1 g/dL N ALBUMIN 4.1 3.6-5.1 g/dL N GLOBULIN 2.3 1.9-3.7 g/dL (calc) N ALBUMIN/GLOBULIN RATIO 1.8 1.0-2.5 (calc) N BILIRUBIN, TOTAL 0.4 0.2-1.2 mg/dL N ALKALINE PHOSPHATASE 39 37-153 U/L N AST 12 10-35 U/L N ALT 13 6-29 U/L N .COMPREHENSIVE METABOLIC VILLALTA EL (11475) [facility] Reviewed date:02/03/2025 10:54:16 AM Interpretation: Performing Lab:HELEN [facility]-Iqfgka73307 Shivani Farooq, LblkknQY[address] Kayli Banks MD Notes/Report: GLUCOSE 125 65-99 mg/dL H Fasting reference interval For someone without known diabetes, a glucose value between 100 and 125 mg/dL is consistent with prediabetes and should be confirmed with a follow-up test. UREA NITROGEN (BUN) 26 7-25 mg/dL H CREATININE 1.73 0.60-1.00 mg/dL H EGFR 30 > OR = 60 mL/min/1.73m2 L BUN/CREATININE RATIO 15 6-22 (calc) N SODIUM 137 135-146 mmol/L N POTASSIUM 4.0 3.5-5.3 mmol/L N CHLORIDE 98 98-110 mmol/L N CARBON DIOXIDE 26 20-32 mmol/L N CALCIUM 10.0 8.6-10.4 mg/dL N PROTEIN, TOTAL 6.7 6.1-8.1 g/dL N ALBUMIN 4.2 3.6-5.1 g/dL N GLOBULIN 2.5 1.9-3.7 g/dL (calc) N ALBUMIN/GLOBULIN RATIO 1.7 1.0-2.5 (calc) N BILIRUBIN, TOTAL 0.4 0.2-1.2 mg/dL N ALKALINE PHOSPHATASE 40 37-153 U/L N AST 13 10-35 U/L N ALT 11 6-29 U/L N .HEMOGLOBIN A1c (496) Reviewed date:02/03/2025 10:54:16 AM Interpretation: Performing Lab:[facility] [facility]ltkgeeSH[address] Kayli Banks Notes/Report: HEMOGLOBIN A1c 7.6 <5.7 % of total Hgb H For someone without known diabetes, a hemoglobin A1c value of 6.5% or greater indicates that they may have diabetes and this should be confirmed with a follow-up test. For someone with known diabetes, a value <7% indicates that their diabetes is well controlled and a value greater than or equal to 7% indicates suboptimal control. A1c targets should be individualized based on duration of diabetes, age, comorbid conditions, and other considerations. Currently, no consensus exists regarding use of hemoglobin A1c for diagnosis of diabetes for children. T4, FREE (866) Reviewed date:02/03/2025 10:54:16 AM Interpretation: Performing Lab:Kristy CERVANTES-Zpepiw89777 Shivani Farooq, PlapytSS[address] Kayli Banks MD Notes/Report: T4, FREE 1.1 0.8-1.8 ng/dL N TSH (899) Reviewed date:02/03/2025 10:54:16 AM Interpretation: Performing Lab:Kristy C[facility]-Bob Jeff[address] Kayli Banks MD Notes/Report: TSH 7.38 0.40-4.50 mIU/L H T3, FREE (76674) Reviewed date:02/03/2025 10:54:16 AM Interpretation: Performing Lab:Kristy CERVANTES01Bob Rascon[address] Kayli Banks MD Notes/Report: T3, FREE 2.7 2.3-4.2 pg/mL N .COMPREHENSIVE METABOLIC VILLALTA (76145) [facility] Reviewed date:04/22/2025 10:43:55 PM Interpretation: Performing Lab:Kristy CERVANTESa10101 Andrea OlsenaKS[address] Kayli Banks MD Notes/Report: FASTING:YES FASTING: YES GLUCOSE 81 65-99 mg/dL N Fasting reference interval UREA NITROGEN (BUN) 34 7-25 mg/dL H CREATININE 2.75 0.60-1.00 mg/dL H EGFR 17 > OR = 60 mL/min/1.73m2 L BUN/CREATININE RATIO 12 6-22 (calc) N SODIUM 137 135-146 mmol/L N POTASSIUM 4.7 3.5-5.3 mmol/L N CHLORIDE 103 98-110 mmol/L N CARBON DIOXIDE 23 20-32 mmol/L N CALCIUM 9.7 8.6-10.4 mg/dL N PROTEIN, TOTAL 6.6 6.1-8.1 g/dL N ALBUMIN 4.4 3.6-5.1 g/dL N GLOBULIN 2.2 1.9-3.7 g/dL (calc) N ALBUMIN/GLOBULIN RATIO 2.0 1.0-2.5 (calc) N BILIRUBIN, TOTAL 0.6 0.2-1.2 mg/dL N ALKALINE PHOSPHATASE 35 37-153 U/L L AST 10 10-35 U/L N ALT 10 6-29 U/L N .LIPID PANEL, STANDARD (7600 ) Reviewed date:04/20/2025 08:09:26 AM Interpretation: Performing Lab:HELEN [facility]-Cdexka[address]33 Shivani [facility], PdrumqHK[address] Kayli Banks MD Notes/Report: FASTING:YES FASTING: YES CHOLESTEROL, TOTAL 137 <200 mg/dL N HDL CHOLESTEROL 35 > OR = 50 mg/dL L TRIGLYCERIDES 228 <150 mg/dL H If a non-fasting specimen was collected, consider repeat triglyceride testing on a fasting specimen if clinically indicated. Edgar et al. J. of Clin. Lipidol. 2015;9:129-169. LDL-CHOLESTEROL 70 N Reference range: <100 Desirable range <100 mg/dL for primary prevention; <70 mg/dL for patients with CHD or diabetic patients with > or = 2 CHD risk factors. LDL-C is now calculated using the David-Peres calculation, which is a validated novel method providing better accuracy than the Friedewald equation in the estimation of LDL-C. David SS et al. JESSICA. 2013;310(19): 1605-9666 (http://education.[facility]/faq/BHZ729) CHOL/HDLC RATIO 3.9 <5.0 (calc) N NON HDL CHOLESTEROL 102 <130 mg/dL (calc) N For patients with diabetes plus 1 major ASCVD risk factor, treating to a non-HDL-C goal of <100 mg/dL (LDL-C of <70 mg/dL) is considered a therapeutic option. .CBC (INCLUDES DIFF/PLT) (63 99) Reviewed date:04/20/2025 08:09:19 AM Interpretation: Performing Lab:HELEN [facility]-Qkyjsp30493 Shviani Farooq, MxipnvAV[address] Kayli Banks MD Notes/Report: FASTING:YES FASTING: YES WHITE BLOOD CELL COUNT 9.4 3.8-10.8 Thousand/uL N RED BLOOD CELL COUNT 4.17 3.80-5.10 Million/uL N HEMOGLOBIN 12.4 11.7-15.5 g/dL N HEMATOCRIT 39.0 35.0-45.0 % N MCV 93.5 80.0-100.0 fL N MCH 29.7 27.0-33.0 pg N MCHC 31.8 32.0-36.0 g/dL L For adults, a slight decrease in the calculated MCHC value (in the range of 30 to 32 g/dL) is most likely not clinically significant; however, it should be interpreted with caution in correlation with other red cell parameters and the patient's clinical condition. RDW 13.0 11.0-15.0 % N PLATELET COUNT 204 140-400 Thousand/uL N MPV 12.5 7.5-12.5 fL N ABSOLUTE NEUTROPHILS 6204 7198-5112 cells/uL N ABSOLUTE LYMPHOCYTES 2312 850-3900 cells/uL N ABSOLUTE MONOCYTES 677 200-950 cells/uL N ABSOLUTE EOSINOPHILS 169 15-500 cells/uL N ABSOLUTE BASOPHILS 38 0-200 cells/uL N NEUTROPHILS 66 N LYMPHOCYTES 24.6 N MONOCYTES 7.2 N EOSINOPHILS 1.8 N BASOPHILS 0.4 N .HEMOGLOBIN A1c (496) Reviewed date:04/20/2025 08:09:53 AM Interpretation: Performing Lab:[facility] CenterHrfse[address] WgrddosAW[address] [facility] Notes/Report: FASTING:YES FASTING: YES HEMOGLOBIN A1c 6.4 <5.7 % of total Hgb H For someone without known diabetes, a hemoglobin A1c value between 5.7% and 6.4% is consistent with prediabetes and should be confirmed with a follow-up test. For someone with known diabetes, a value <7% indicates that their diabetes is well controlled. A1c targets should be individualized based on duration of diabetes, age, comorbid conditions, and other considerations. This assay result is consistent with an increased risk of diabetes. Currently, no consensus exists regarding use of hemoglobin A1c for diagnosis of diabetes for children. T4, FREE (866) Reviewed date:04/20/2025 08:09:37 AM Interpretation: Performing Lab:Kristy [facility]-Wfuvmm08370 Andrea OlsenaKS[address] Kayli Banks MD Notes/Report: FASTING:YES FASTING: YES T4, FREE 0.9 0.8-1.8 ng/dL N TSH (899) Reviewed date:04/20/2025 08:09:43 AM Interpretation: Performing Lab:Kristy CERVANTES01Ilan Farooq, VikzvgPG[address] Kayli Banks MD Notes/Report: FASTING:YES FASTING: YES TSH 6.94 0.40-4.50 mIU/L H .COMPREHENSIVE METABOLIC VILLALTA (42108) [facility] Reviewed date:03/15/2025 12:25:35 PM Interpretation: Performing Lab:Kristy CERVANTES [place]aKS[address] Kayli Banks MD Notes/Report: GLUCOSE 111 65-99 mg/dL H Fasting reference interval For someone without known diabetes, a glucose value between 100 and 125 mg/dL is consistent with prediabetes and should be confirmed with a follow-up test. UREA NITROGEN (BUN) 27 7-25 mg/dL H CREATININE 1.89 0.60-1.00 mg/dL H EGFR 27 > OR = 60 mL/min/1.73m2 L BUN/CREATININE RATIO 14 6-22 (calc) N SODIUM 136 135-146 mmol/L N POTASSIUM 3.6 3.5-5.3 mmol/L N CHLORIDE 97 98-110 mmol/L L CARBON DIOXIDE 27 20-32 mmol/L N CALCIUM 9.8 8.6-10.4 mg/dL N PROTEIN, TOTAL 6.5 6.1-8.1 g/dL N ALBUMIN 4.2 3.6-5.1 g/dL N GLOBULIN 2.3 1.9-3.7 g/dL (calc) N ALBUMIN/GLOBULIN RATIO 1.8 1.0-2.5 (calc) N BILIRUBIN, TOTAL 0.5 0.2-1.2 mg/dL N ALKALINE PHOSPHATASE 34 37-153 U/L L AST 13 10-35 U/L N ALT 12 6-29 U/L N .COMPREHENSIVE METABOLIC VILLALTA (57312) CMP Reviewed date:05/05/2025 09:54:52 PM Interpretation: Performing Lab:[facility], [id number] Kayli Banks MD Notes/Report: FASTING: YES GLUCOSE 119 65-99 mg/dL H Fasting reference interval For someone without known diabetes, a glucose value between 100 and 125 mg/dL is consistent with prediabetes and should be confirmed with a follow-up test. UREA NITROGEN (BUN) 40 7-25 mg/dL H CREATININE 2.24 H Age and/or gender not provided. Unable to calculate eGFR. Reference Range Male: 0.70-1.28 Female: 0.60-1.00 Unable to flag appropriately due to gender not provided. BUN/CREATININE RATIO 18 6-22 (calc) N SODIUM 133 135-146 mmol/L L POTASSIUM 5.3 3.5-5.3 mmol/L N CHLORIDE 100 98-110 mmol/L N CARBON DIOXIDE 23 20-32 mmol/L N CALCIUM 9.9 N Reference Range Male: 8.6-10.3 Female: 8.6-10.4 Unable to flag appropriately due to gender not provided. PROTEIN, TOTAL 6.6 6.1-8.1 g/dL N ALBUMIN 4.3 3.6-5.1 g/dL N GLOBULIN 2.3 1.9-3.7 g/dL (calc) N ALBUMIN/GLOBULIN RATIO 1.9 1.0-2.5 (calc) N BILIRUBIN, TOTAL 0.5 0.2-1.2 mg/dL N ALKALINE PHOSPHATASE 31 N Reference Range Male: 35-144 Female: 37-153 Unable to flag appropriately due to gender not provided. AST 12 10-35 U/L N ALT 11 N Reference range Male: 9-46 Female: 6-29 Unable to flag appropriately due to gender not provided. NO COLLECTION DATE RECEIVED. WE HAVE USED THE DATE THE SPECIMEN WAS RECEIVED BY THIS LABORATORY THE COLLECTION DATE. IF THIS IS INCORRECT, PLEASE CONTACT CLIENT SERVICES. PHONE NUMBER: [phone] Reason For Referral Reason three meningiomas me ntioned on MRI brain 2.2 cm frontal lobe, 1.8 cm in cerebellopontine angle and another 8 mm, needs neurosurgical evaluation thank you Diagnosis 1 Benign neoplasm of m eninges, unspecified (D32.9) Referring Provider First Name Sarah Referring Provider Last Name Delio Referring Provider Speciality Endocrinol ogy Referred Provider Specialty Neurological Surgery General Notes Please call patient to set up an appointment.; Referral Priority Urgent Reason Please refer patient to Dr. Dao for elevated creatinine level Creatinine level 1.89 Diagnosis 1 Abnormal renal funct ion test (R94.4) Referral Organization [facility] Dr. Kebede Referring Provider First Name Sarah Referring Provider Last Name Delio Referring Provider Speciality Endocrinfrank jackson Referred Provider Specialty Nephrology Referral Priority Routine Reason Patient is in need o f a quality assurance specialist consult. Diagnosis 1 Anemia due to chroni c kidney disease (N18.9) Referral Organization [facility] Dr. Kebede Referring Provider First Name Sarah Referring Provider Last Name Delio [facility] Referred Provider Specialty Nephrology Referral Priority Routine Reason Patient is needing a nephrology consult. Thank you! Diagnosis 1 Anemia due to chroni c kidney disease (N18.9) Referral Organization [facility] Dr. Kebede Referring Provider First Name Sarah Referring Provider Last Name Delio [facility] End[facility] jackson Referred Provider Specialty Nephrology Referral Priority Routine Medications Medication SIG (Take, Route, Frequency, Duration) Notes Start Date End Date Status Dexcom G7 Sensor - Miscellaneous as directed every 10 days; Duration: 90 days 06/05/2025 Active Mcdonald & Syringes 30G inch needles wit h 1mL syringe to inject vitamin b12 weekly; Duration: 90 days 07/18/2025 Active Pantoprazole Sodium 40 MG Tablet Delayed Release 1 tablet Orally Once a day; Duration: 90 days Active oxyBUTYnin Chloride 5 MG Tablet TAKE 1 TABLET BY MOUTH THREE TIMES DAILY; Duration: 90 Active Ondansetron HCl 4 MG Tablet 1 tablet Orally twice daily as needed for nausea; Duration: 90 days 02/08/2025 Active Cyanocobalamin 1000 MCG/ML Solution inject 1000 mcg subcutaneously once weekly; Duration: 90 days 08/28/2024 Active Vascepa 1 GM Capsule 2 cap(s) orally 2 t imes a day; Duration: 90 days 05/30/2024 Active amLODIPine Besylate 5 MG Tablet 1 tablet Orally Once a day; Duration: 90 days 06/25/2025 Active Gvoke HypoPen 2-Pack 1 MG/0.2ML Solution Auto-injector INJECT SUBCUTANEOUSLY NEEDED FOR SUGARS UNDER 50MG/DL; Duration: 1 Active Icosapent Ethyl 1 GM Capsule Take 2 capsules by mouth twice daily; Duration: 90 Active Montelukast Sodium 10 MG Tablet 1 tablet Orally Once a day; Duration: 90 days 06/25/2025 Active Rosuvastatin Calcium 40 MG Tablet Take 1 tablet by mouth once daily; Duration: 90 Active metFORMIN HCl 1000 MG Tablet Take 1 tablet by mouth twice daily; Duration: 90 Active Potassium Chloride ER 20 MEQ Tablet Extended Release 1 tablet with food Orally twice daily; Duration: 90 days 03/29/2025 Active Vitamin D (Ergocalciferol) 1.25 MG (39967 UT) Capsule Take 1 capsule by mouth once a week; Duration: 84 Active Mounjaro 5 MG/0.5ML Solution Auto-injector inject 5mg Subcutaneous weekly; Duration: 90 days 07/05/2025 Active Farxiga 10 MG Tablet Take 1 tablet by [facility] once daily for 90 days; Duration: 90 Active NovoLOG 100 UNIT/ML Solution inject up to 200 units per pump injection daily subcutaneously daily; Duration: 90 days 09/01/2024 Active Bisoprolol-hydroCHLOROth iazide 10-6.25 MG Tablet 1 tablet Orally Once a day; Duration: 90 days 07/09/2025 Active Dexcom G6 Sensor - Miscellaneous change every 10 days; Duration: 90 days 03/08/2025 Not-Taking Topiramate 50 MG Tablet Take 1 tablet by mouth twice daily; Duration: 90 Active Social History Social History Additional Details Category Social Info Options Details Migrated Social History Migrated Social History (Alcohol:):no (Recreational drug use:):no (Smoking:):no Section Notes: Non-Contributory Non-Contributory Problems Problem Type SNOMED Code ICD Code Onset Dates Problem Status W/U Status Risk Notes Problem Benign neoplasm of meninges (449102743) Benign neoplasm of meninges, unspecified (D32.9) Active confirmed Problem Hyperglycemia due to type 2 diabetes mellitus (465864121872419) Type 2 diabetes mellitus with hyperglycemia (E11.65) Active confirmed Problem Type II diabetes mellitus without complication (703667907) Type 2 diabetes mellitus without complications (E11.9) Active confirmed Problem [place]'s syndrome (55126307) Essence's syndrome, 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) Active confirmed Problem Disorder of adrenal gland (95890743) Disorder of adrenal gland, 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) Active confirmed Problem Obesity (010677516) Obesity, unspecified (E66.9) Active confirmed Problem Mixed hyperlipidemia (245790681) Mixed hyperlipidemia (E78.2) Active confirmed Problem Essential hypertension (01413761) Essential (primary) hypertension (I10) Active confirmed Problem Menopause (305105094) Menopausal and female climacteric states (N95.1) Active confirmed Problem Long-term current use of insulin (122372573) FDC (current) use of insulin (Z79.4) Active confirmed Problem Chronic kidney disease stage 3 (disorder) (555894625) Chronic kidney disease, stage 3 unspecified (N18.30) Active confirmed Problem Dyslipidemia (072570380) Dyslipidemia (E78.5) Active confirmed Problem Fatty liver (561645657) Fatty liver (K76.0) Active confirmed Problem Hyperlipidemia (30285159) Hyperlipidemia, unspecified (E78.5) Active confirmed Problem Anemia of chronic renal failure (37515605) Anemia due to chronic kidney disease (N18.9) Active confirmed Problem 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 Kebede [id number] [place] [phone] 11/15/2024 Sarah Kebede Type 2 diabetes parvin itus with hyperglycemia E11.65 ; Mixed hyperlipidemia E78.2 ; Obesity, unspecified E66.9 ; Essence's syndrome, unspecified E24.9 ; Benign neoplasm of meninges, unspecified D32.9 and Dietary counseling and surveillance Z71.[address] Kebede [address] [place] [phone] 12/28/2024 Sarah Kebede Type 2 diabetes parvin itus with hyperglycemia E11.65 ; Essence's syndrome, unspecified E24.9 ; Obesity, unspecified E66.9 and Mixed hyperlipidemia E78.[address] Kebede [address] [place] [address] 01/25/2025 Sarah Kebede Type 2 diabetes parvin itus with hyperglycemia E11.65 ; Essence's syndrome, unspecified E24.9 ; Obesity, unspecified E66.9 ; Mixed hyperlipidemia E78.2 ; Benign neoplasm of meninges, unspecified D32.9 and Acute renal insufficiency N28.[address] [place] [place] [phone] 02/08/2025 Sarah Kebede Type 2 diabetes parvin itus with hyperglycemia E11.65 ; [place]'s syndrome, unspecified E24.9 ; Mixed hyperlipidemia E78.2 ; Dietary counseling and surveillance Z71.3 and Nausea R11.[address] [place] [address] 03/29/2025 Sarah Kebede Type 2 diabetes parvin itus with hyperglycemia E11.65 ; [place]'s syndrome, unspecified E24.9 ; Mixed hyperlipidemia E78.2 ; Essential (primary) hypertension I10 ; Hypokalemia E87.6 and Dietary counseling and surveillance Z71.[address] Kebede [address] [place] [address] 05/03/2025 Sarah Kebede Type 2 diabetes parvin itus with hyperglycemia E11.65 ; Mixed hyperlipidemia E78.2 ; [place]'s syndrome, unspecified E24.9 ; Obesity, unspecified E66.9 and Dietary counseling and surveillance Z71.3 AMMO [facility] [address] [place] [address] 05/03/2025 Sarah Kebede Obesity, unspecified E66.[address] Kebede [address] [place] [address] 07/05/2025 Sarah Kebede Type 2 diabetes parvin itus with hyperglycemia E11.65 ; Mixed hyperlipidemia E78.2 ; Obesity, unspecified E66.9 ; [employer] (current) use of insulin Z79.4 ; Dietary counseling and surveillance Z71.3 and Hypercortisolism E24.[address] [place] [address] 09/27/2025 Sarah Kebede Fatty liver K76.0 ; Hypercortisolism E24.9 ; Dyslipidemia E78.5 ; Dietary counseling and surveillance Z71.3 ; Type 2 diabetes mellitus without complications E11.9 ; FDC (current) use of insulin Z79.4 ; Acute kidney failure, unspecified N17.9 and Chronic kidney disease, stage [address] Kebede [address] [place] [phone] 10/31/2024 Sarah Kebede [facility] [address] [place] [phone] 11/01/2024 Sarah Kebede Benign neoplasm of meninges, unspecified D32.[address] Kebede [address] [place] [phone] 11/16/2024 Sarah Kebede Other specified dise ases of upper respiratory tract J39.8 [facility] [address] [place] [phone] 12/28/2024 Sarah Kebede [facility] [address] [place] [phone] 01/11/2025 Sarah Kebede Type 2 diabetes parvin itus with hyperglycemia E11.[address] Kebede [address] [place] [phone] 01/29/2025 Sarah Kebede [facility] [address] [place] [phone] 02/10/2025 Sarah Kebede [facility] [address] [place] [phone] 02/10/2025 Sarah Kebede [facility] [address] [place] [phone] 03/08/2025 Sarah Kebede [facility] [address] [place] [phone] 03/12/2025 Sarah Kebede [facility] [address] [place] [phone] 03/14/2025 Sarah Kebede [facility] [address] [place] [phone] 03/15/2025 Sarah Kebede [facility] [address] [place] [phone] 03/26/2025 Sarah Kebede [facility] [address] [place] [phone] 04/11/2025 Sarah Kebede [facility] [address] [place] [phone] 04/13/2025 Sarah Kebede [facility] [place] [facility] [address] [place], [place] [phone] 05/11/2025 Sarah Kebede [address] [place], [place] [phone] 06/05/2025 Sarah Kebede [employer] (current) use of insulin Z79.4 AM[facility] [place] [facility] [address] [place], [place] [phone] 06/25/2025 Sarah Kebede [facility] [place] [facility] [address] [place] [address] 06/26/2025 Sarah Kebede [address] [place], [place] [phone] 07/09/2025 Sarah Kebede Type 2 diabetes parvin itus with hyperglycemia E11.[address] Kebede [address] [place] [phone] 07/18/2025 Sarah Kebede Vitamin B12 deficien cy anemia, unspecified D51.9 [facility] [place] [facility] [address] [place], [place] [phone] 08/08/2025 Sarah Kebede [address] [place] [phone] 08/09/2025 Sarah Kebede Mixed hyperlipidemia E78.[address] Kebede [address] [place] [phone] 08/16/2025 Sarah Kebede [address] [place] [phone] 08/24/2025 Sarah NOLASCO [facility] [address] [place] [phone] 09/26/2025 Sarah Kebede [facility] [address] [place] [phone] 09/27/2025 Sarah Kebede [address] [place] [phone] 10/11/2025 Sarah Kebede Assessments Encounter Date Diagnosis (ICD Code) Assessment Notes Treatment Notes Treatment Clinical Notes Section Notes 11/01/2024 Benign neoplasm of meninges, unspecified (ICD-10 - D32.9) 11/15/2024 Type 2 diabetes mellitus with hyperglycemia (ICD-10 - E11.65) 11/16/2024 Other specified diseases of upper respiratory tract (ICD-10 - J39.8) 12/28/2024 Type 2 diabetes mellitus with hyperglycemia (ICD-10 - E11.65) A1C of 7.2%- in range 81% of time per CGM review with patient- no hypoglycemia Continue 1 u/hr overnight and 1.1 u/hr during day- she is aware to reach out as we might need to reduce by 20% as we will increase korlym to once daily- has been on every other day for one month and potassium ideal range. She has lost 10 pounds and she has better glycemic control overall. Goal will be to wean down to the lowest dose of insulin possible and maintain tolerable dose of korlym therapy. 01/25/2025 Type 2 diabetes mellitus with hyperglycemia (ICD-10 - E11.65) 01/25/2025 [place]'s syndrome, unspecified (ICD-10 - E24.9) 02/08/2025 Type 2 diabetes mellitus with hyperglycemia (ICD-10 - E11.65) 02/08/2025 [place]'s syndrome, unspecified (ICD-10 - E24.9) 01/11/2025 Type 2 diabetes mellitus with hyperglycemia (ICD-10 - E11.65) 03/29/2025 Type 2 diabetes mellitus with hyperglycemia (ICD-10 - E11.65) 03/29/2025 [place]'s syndrome, unspecified (ICD-10 - E24.9) 05/03/2025 Type 2 diabetes mellitus with hyperglycemia (ICD-10 - E11.65) 05/03/2025 Obesity, unspecified (ICD-10 - E66.9) 06/05/2025 FDC (current) use of insulin (ICD-10 - Z79.4) 07/05/2025 Type 2 diabetes mellitus with hyperglycemia (ICD-10 - E11.65) 07/09/2025 Type 2 diabetes mellitus with hyperglycemia (ICD-10 - E11.65) 07/18/2025 Vitamin B12 deficiency anemia, unspecified (ICD-10 - D51.9) 08/09/2025 Mixed hyperlipidemia (ICD-10 - E78.2) 09/27/2025 Fatty liver (ICD-10 - K76.0) c 09/27/2025 Hypercortisolism (ICD-10 - E24.9) c 09/27/2025 Dyslipidemia (ICD-10 - E78.5) c 05/03/2025 Mixed hyperlipidemia (ICD-10 - E78.2) 07/05/2025 Mixed hyperlipidemia (ICD-10 - E78.2) 03/29/2025 Mixed hyperlipidemia (ICD-10 - E78.2) 02/08/2025 Mixed hyperlipidemia (ICD-10 - E78.2) 01/25/2025 Obesity, unspecified (ICD-10 - E66.9) 12/28/2024 Essence's syndrome, unspecified (ICD-10 - E24.9) 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 Incidentally found to have meningioma on MRI brain/ pituitary normal- seeing neurology and will be monitoring her spots/white matter changes. Continue on korlym 300 mg and go up to once daily from every other day- she is aware to obtain CMP in 2 weeks and aware to drink up to 80 ozs of water. Her water intake is poor and her renal function is borderline/ stage 2. May need to see nephrology depending on repeat CMP in 2 weeks. Continue spironolactone 100 mg daily as her potassium and BP are in ideal range- patient otherwise tolerating well denies any nausea, vomiting, headaches, or significant symptoms at this time. 11/15/2024 Mixed hyperlipidemia (ICD-10 - E78.2) 12/28/2024 Obesity, unspecified (ICD-10 - E66.9) Management of cushings syndrome- she has lost 10 pounds since cortisol blockade therapy. 01/25/2025 Mixed hyperlipidemia (ICD-10 - E78.2) 11/15/2024 Obesity, unspecified (ICD-10 - E66.9) 02/08/2025 Dietary counseling and surveillance (ICD-10 - Z71.3) Spent 15 minutes preventative counseling patient on dietary recommendations and changes in setting of hyperglycemia- need to restrict refined sugars and processed foods and incorporate up to 150 minutes of moderate level activity weekly. 05/03/2025 Essence's syndrome, unspecified (ICD-10 - E24.9) 03/29/2025 Essential (primary) hypertension (ICD-10 - I10) 07/05/2025 Obesity, unspecified (ICD-10 - E66.9) 09/27/2025 Dietary counseling and surveillance (ICD-10 - Z71.3) Spent 15 minutes preventative counseling patient on dietary recommendations and changes in setting of hyperglycemia- need to restrict refined sugars and processed foods and incorporate up to 150 minutes of moderate level activity weekly. c 07/05/2025 [employer] container terminal (current) use of insulin (ICD-10 - Z79.4) 09/27/2025 Type 2 diabetes mellitus without complications (ICD-10 - E11.9) c 05/03/2025 Obesity, unspecified (ICD-10 - E66.9) 03/29/2025 Hypokalemia (ICD-10 - E87.6) 01/25/2025 Benign neoplasm of meninges, unspecified (ICD-10 - D32.9) 02/08/2025 Nausea (ICD-10 - R11.0) 12/28/2024 Mixed hyperlipidemia (ICD-10 - E78.2) Continue rosuvastatin and vascepa-repeat lipid panel in January along with A1C levels. 11/15/2024 [place]'s syndrome, unspecified (ICD-10 - E24.9) 11/15/2024 Benign neoplasm of meninges, unspecified (ICD-10 - D32.9) 01/25/2025 Acute renal insufficiency (ICD-10 - N28.9) 07/05/2025 Hypercortisolism (ICD-10 - E24.9) 09/27/2025 [employer] container terminal (current) use of insulin (ICD-10 - Z79.4) c 07/05/2025 Dietary counseling and surveillance (ICD-10 - Z71.3) Spent 15 minutes preventative counseling patient on dietary recommendations and changes in setting of hyperglycemia- need to restrict refined sugars and processed foods and incorporate up to 150 minutes of moderate level activity weekly. 05/03/2025 Dietary counseling and surveillance (ICD-10 - Z71.3) Spent 15 minutes preventative counseling patient on dietary recommendations and changes in setting of hyperglycemia- need to restrict refined sugars and processed foods and incorporate up to 150 minutes of moderate level activity weekly. 09/27/2025 Acute kidney failure, unspecified (ICD-10 - N17.9) c 03/29/2025 Dietary counseling and surveillance (ICD-10 - Z71.3) Spent 15 minutes preventative counseling patient on dietary recommendations and changes in setting of hyperglycemia- need to restrict refined sugars and processed foods and incorporate up to 150 minutes of moderate level activity weekly. 11/15/2024 Dietary counseling and surveillance (ICD-10 - Z71.3) 09/27/2025 Chronic kidney disease, stage 3 unspecified (ICD-10 - N18.30) c 11/15/2024 Other Assessment and Plan: 1. Diabetes Mellitus Type 1: - A1c improved to 7.9, but not yet at goal. - Dexcom sensor shows 87% in range. - Pump settings: 1 unit overnight, 1.1 units during the day, using 15.6 units total. Plan: - Continue current insulin pump settings. - Monitor blood glucose levels closely, especially after starting Korlym. - Adjust pump settings as needed, reducing insulin needs by 50% once Korlym is initiated (0.5 units overnight, 0.6 units during the day). 2. [place]'s Syndrome: - Patient signed up for Korlym but has not started yet. Plan: - Start Korlym at a low dose every other day after the patient receives it around the New Year. - Monitor for weight loss and cortisol reduction. - Follow up in two weeks after starting Korlym to review sugars, potassium, and other factors. 3. Hypertension: - Blood pressure stable at 100/60. - Patient taking Spironolactone and Lisinopril. Plan: - Continue Spironolactone and Lisinopril. - Monitor blood pressure regularly. - Adjust Korlym dose as needed, counter with Spironolactone if necessary. 4. Meningioma: - Scan shows meningioma at the cerebellum base, possibly removable. - Patient experiencing balance issues. Plan: - Patient to see neurosurgery on the for further evaluation and management. 5. Sinus congestion: - Patient reports morning congestion with thick, yellowish discharge. Plan: - Monitor symptoms and contact primary care provider or Dr. Kebede if symptoms worsen. - Consider antibiotic treatment if infection is suspected. 6. Dyslipidemia: - LDL under 100, triglycerides slightly elevated. - Patient taking fish oil and rosuvastatin. Plan: - Continue fish oil and rosuvastatin. - Monitor lipid panel regularly. 7. Mildly elevated calcium: - Likely due to cortisol. Plan: - Monitor calcium levels after starting Korlym and reducing cortisol. 8. Proteinuria: - Small amount of protein in urine. Plan: - Continue Lisinopril, likely 40 mg. - Monitor kidney function and proteinuria regularly. Follow-up:- Schedule a follow-up appointment in mid to late November to review progress after starting Korlym and to address any concerns. Spent 15 minutes preventative counseling patient on dietary recommendations and changes in setting of hyperglycemia- need to restrict refined sugars and processed foods and incorporate up to 150 minutes of moderate level activity weekly. Spent 45 minutes preparing to see the patient (ex review of tests/chart), obtaining and / or reviewing separately obtained history, performing a medically appropriate examination and/or evaluation, counseling and educating the patient/family/patient care, ordering medications, tests, or procedures, referring and communicating with other health resident care associate, documenting clinical information in the electronic or other health record, independently interpreting results and communicating results to the patient/family/patient care and care coordinating patient plan. Patient alert and oriented x 4 and aware of discussion noted above and in agreeance to plan in management of type 2 DM, obesity/weight management, cushings syndrome and new finding of meningiomas on brain MRI/referral to neurosurgery. 12/28/2024 Other Spent 25 minutes preparing to see the patient (ex review of tests/chart), obtaining and / or reviewing separately obtained history, performing a medically appropriate examination and/or evaluation, counseling and educating the patient/family/patient care, ordering medications, tests, or procedures, referring and communicating with other health resident care associate, documenting clinical information in the electronic or other health record, independently interpreting results and communicating results to the patient/family/patient care and care coordinating patient plan. Patient alert and oriented x 4 and aware of discussion noted above and in agreeance to plan in management of type 2 DM/better controlled on korlym, cushings syndrome, obesity, mixed hyperlipidemia now with mild renal insufficiency. Due to the nature of telemedicine, the ability to do physical assessment was limited to what can be accomplished by patient directed telehealth visit based on instruction. Those limits are understood by the patient and myself. Impression is based on history, available information, and physical findings accomplished with telehealth visit. Chronic disease/problem list/ medication list reviewed and updated where indicated. Discussed diagnosis, plan including risks, benefits, and options of treatment. Advised to call for new, worsening, or persistent symptoms. Level of patient risk was of moderate complexity due to the documented nature of presentation, the information assessment required and the nature of the development of an evaluation and treatment plan as documented. PMH, FHx, SHx, Surgical Hx, Quality management review carried out and addressed as documented today as part of this visit. Medication list was reviewed and adjusted as indicated. Medication requiring a refill was addressed. Risk and benefits of any new medications were discussed and all questions were answered. 01/25/2025 Other Assessment and Plan: Diabetes Mellitus Type 2Patient's glycemic control has shown significant improvement with current management, with A1C decreasing from 7.9% to an estimated 6.8%.Blood glucose levels are predominantly in the low 100s, rarely exceeding 200 mg/dL.Continuous glucose monitoring indicates 90% time in range, with 10% high.Insulin requirements are stable at 1.1 units/hour during the day and 1 unit/hour overnight, with a 44% basal and 56% bolus distribution.The patient is consuming an average of 113 grams of carbohydrates daily and is 100% in automated insulin delivery mode.Continue current insulin pump settings.Monitor for potential need to decrease insulin if blood glucose drops occur.Repeat A1C test in 7-10 days.Follow-up appointment scheduled for February 08.Patient instructed to contact the clinic if fasting blood glucose levels become concerning. [place]'s SyndromePatient is currently managed on a low dose of Korlym (mifepristone) 300 mg daily, which has effectively improved glycemic control and insulin sensitivity.The medication appears to be well-tolerated without significant side effects.Continue Korlym 300 mg daily.Monitor potassium levels (last recorded at 4.4 mEq/L). Acute Kidney InjuryPatient's creatinine levels have recently increased, indicating a decline in kidney function, likely due to inadequate fluid intake.The patient has recently increased fluid intake to 64-80 ounces daily over the past 3-4 days and reports feeling better.Continue increased fluid intake of 4-6 17-ounce bottles of water daily, spaced every 2-3 hours.Repeat comprehensive metabolic panel in 7-10 days to reassess kidney function.Consider nephrology referral if kidney function does not improve with hydration. MeningiomasPatient reports stable meningiomas based on recent neurologist evaluation, with one meningioma located in the cerebellum, potentially contributing to balance issues.The patient denies seizures but reports ongoing balance problems.Follow-up MRI scheduled for September.Monitor for worsening balance issues or new neurological symptoms.Consider physical therapy referral if balance issues worsen. HypertensionBlood pressure is currently well-controlled at 104/60s mmHg.Patient is on spironolactone 100 mg daily.Continue spironolactone 100 mg daily.Monitor blood pressure at home. Follow-up:Encourage patient to contact the clinic if any new or worsening symptoms occur. Spent 25 minutes preparing to see the patient (ex review of tests/chart), obtaining and / or reviewing separately obtained history, performing a medically appropriate examination and/or evaluation, counseling and educating the patient/family/patient care, ordering medications, tests, or procedures, referring and communicating with other health resident care associate, documenting clinical information in the electronic or other health record, independently interpreting results and communicating results to the patient/family/patient care and care coordinating patient plan. 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 Due to the nature of telemedicine, the ability to do physical assessment was limited to what can be accomplished by patient directed telehealth visit based on instruction. Those limits are understood by the patient and myself. Impression is based on history, available information, and physical findings accomplished with telehealth visit. Chronic disease/problem list/ medication list reviewed and updated where indicated. Discussed diagnosis, plan including risks, benefits, and options of treatment. Advised to call for new, worsening, or persistent symptoms. Level of patient risk was of moderate complexity due to the documented nature of presentation, the information assessment required and the nature of the development of an evaluation and treatment plan as documented. PMH, FHx, SHx, Surgical Hx, Quality management review carried out and addressed as documented today as part of this visit. Medication list was reviewed and adjusted as indicated. Medication requiring a refill was addressed. Risk and benefits of any new medications were discussed and all questions were answered. 02/08/2025 Other Assessment and Plan: 1. Type 2 Diabetes Mellitus- Patient's A1c has improved to 7.6, indicating better glycemic control- Weight has decreased from 208 to 198 pounds, a 10-pound loss- Fasting blood glucose levels are around 125 mg/dL- Continuous glucose monitoring (CGM) data shows improvement with 84% time in range over the last 2 days, 71% over the last 2 weeks, and trending up to 81% in the last 30-40 days- Continue current diabetes management plan- Monitor CGM data and adjust treatment as needed- Encourage continued weight loss efforts- Follow up on A1c and fasting glucose levels at next visit 2. Chronic Kidney Disease- Patient's kidney function has shown improvement- Creatinine has decreased from 2.04 to 1.73 mg/dL, with a target range of 1.3-1.4 mg/dL- Current GFR is 30 mL/min/1.73mand- Potassium levels are within normal range- Patient reports drinking 80-90 ounces of water daily- Continue current Corlanor dose at 300 mg daily- Monitor creatinine and GFR levels- Encourage adequate hydration- Adjust medications as kidney function stabilizes 3. Constipation- Patient reports severe constipation, with no bowel movement for 2 weeks- Laxatives taken for 3 nights were ineffective- This may be related to thyroid dysfunction or medication side effects- Consider prescribing Linzess for chronic constipation, pending safety evaluation with Corlanor- Recommend increased fruit intake (e.g., apples, pears)- Monitor thyroid function- Assess for potential medication-induced constipation 4. Medication Side Effects- Patient previously experienced nausea as a side effect of medication- Current blood pressure is noted to be low, which may be a side effect of Corlanor- Assess need for Zofran prescription (up to 8 mg daily) for nausea management- Monitor blood pressure closely- Educate patient on signs of dehydration and when to seek medical attention (e.g., vomiting) Spent 25 minutes preparing to see the patient (ex review of tests/chart), obtaining and / or reviewing separately obtained history, performing a medically appropriate examination and/or evaluation, counseling and educating the patient/family/patient care, ordering medications, tests, or procedures, referring and communicating with other health resident care associate, documenting clinical information in the electronic or other health record, independently interpreting results and communicating results to the patient/family/patient care and care coordinating patient plan. Patient alert and oriented x 4 and aware of discussion noted above and in agreeance to plan in management of cushings syndrome, better controlled type 2 dM, mixed dyslipidemia and nausea/need for zofran. 03/29/2025 Other Assessment and Plan: 1. Obesity with weight loss secondary to cushings syndromeAssessment: Patient has made significant progress in weight loss, dropping from an initial weight of 206 lbs to the current weight of 183 lbs. Six weeks ago, the patient weighed 198 lbs, indicating consistent weight loss over time. This improvement suggests that the current management plan for weight loss is effective.Plan:- Continue current weight management plan with cortisol blockade therapy with korlym 300 mg daily- Reassess weight at next follow-up 2. Chronic kidney diseaseAssessment: Patient's creatinine remains elevated at 1.8, which is higher than the target of 1.4. This indicates persistent renal dysfunction. The patient has not yet seen a quality assurance specialist for specialized kidney care.Plan:- Refer to quality assurance specialist Dr. Martinez in [place] for kidney evaluation and management- and patient want to look into this further- Monitor creatinine levels with follow-up labs - Reduce spironolactone 50 mg daily and start on potassium chloride 20 meq twice daily as potassium of 3.6 mmol/L and with reduction of spironolactone will need potassium supplementation 3. HypertensionAssessm ent: Patient's blood pressure is currently well-controlled on current medication regimen. However, a recent low blood pressure reading of 88/44 at the dentist's office indicates a need for medication adjustment to prevent hypotension.Plan:- Decrease spironolactone from 100 mg to 50 mg daily- Continue Coreg 300 mg (current frequency not specified)- Continue lisinopril (dose not specified)- Monitor blood pressure at home and report any symptoms of hypotension 4. HypokalemiaAssessme nt: Patient's potassium level is 3.6, which is on the lower end of normal. Given the medication changes and the balance between potassium-retaining (spironolactone) and potassium-lowering (Coreg) medications, supplementation is necessary to prevent hypokalemia.Plan:- Start potassium chloride 20 mEq PO twice daily- Repeat labs in 3 weeks to monitor potassium levels- Educate patient on the importance of potassium balance and medication adherence 5. Diabetes mellitusAssessment: Patient is currently managed with insulin pump therapy and Trulicity for diabetes. No specific glucose levels or HbA1c values were mentioned, but continued management is indicated.Plan:- Continue insulin pump therapy- Continue Trulicity 1.5 mg subcutaneously once weekly- Consider switching to G7 sensor for glucose monitoring, pending insurance approval- Educate patient on benefits of G7 sensor, including integrated transmitter and 10-day replacement cycle - per CGM she is 92% in range with no hypoglycemia and average glucose of 137 mg/dL 6. Medication managementAssessmen t: Patient is on multiple medications for various chronic conditions. Current regimen includes rosuvastatin, vesipa, pantoprazole, vitamin D weekly, and Topamax 50 mg twice daily. Sleep issues were mentioned, requiring consideration of sleep aid.Plan:- Continue current medications: rosuvastatin, vesipa, pantoprazole, vitamin D weekly, Topamax 50 mg twice daily- Recommend [id number] Benadryl for sleep aid tonight- Monitor for side effects and efficacy of all medications- Follow up on sleep issues at next visit Spent 25 minutes preparing to see the patient (ex review of tests/chart), obtaining and / or reviewing separately obtained history, performing a medically appropriate examination and/or evaluation, counseling and educating the patient/family/patient care, ordering medications, tests, or procedures, referring and communicating with other health resident care associate, documenting clinical information in the electronic or other health record, independently interpreting results and communicating results to the patient/family/patient care and care coordinating patient plan. Patient alert and oriented x 4 and aware of discussion noted above and in agreeance to plan in management of type 2 DM/well controlled, mixed hyperlipidemia, obesity/weight management in setting of cushings syndrome. 05/03/2025 Other Assessment and Plan: 1. Hypotension- Discontinue lisinopril and all other blood pressure medications- Instruct patient to monitor blood pressure at home- If blood pressure does not increase to 90s/60s, consider IV fluid administration and patient and aware she may need to go to ER for further care if indicated- Follow up on kidney function, as it previously increased to 2 before dropping 2. Essence's Syndrome- Initiate Recorlev once kidney function stabilizes- Monitor thyroid function while on Recorlev- Ensure patient signs consent form for Recorlev- Arrange for Recorlev to be shipped to patient's home 3. Diabetes Mellitus- Continue NovoLog via insulin pump at 1.1 units per hour- Continue Trulicity 1.5 mg weekly- Monitor blood sugar levels, especially as Korlym effects wear off 4. Chronic Kidney Disease- Discontinue spironolactone and potassium chloride- Order blood work to check potassium levels and kidney function- Refer to quality assurance specialist for evaluation on June 07 5. Weight Loss- Monitor weight at follow-up appointments- Educate patient on expected changes in weight loss rate with new medication 6. Meningioma- Continue monitoring for neurological symptoms- Educate patient on fall prevention strategies 7. Hyperlipidemia- Continue rosuvastatin (dose not specified)- Continue Vascepa (icosapent ethyl, dose not specified) 8. Subclinical Hypothyroidism- Monitor thyroid function, especially when starting Recorlev- Defer thyroid medication at this time Spent 25 minutes preparing to see the patient (ex review of tests/chart), obtaining and / or reviewing separately obtained history, performing a medically appropriate examination and/or evaluation, counseling and educating the patient/family/patient care, ordering medications, tests, or procedures, referring and communicating with other health resident care associate, documenting clinical information in the electronic or other health record, independently interpreting results and communicating results to the patient/family/patient care and care coordinating patient plan. Patient alert and oriented x 4 and aware of discussion noted above and in agreeance to plan in management of type 2 DM/well controlled, mixed hyperlipidemia, cushings syndrome, obesity/weight management and CKD/going to quality assurance specialist soon. 07/05/2025 Rebecca Medina, a patient with Essence's syndrome and diabetes, presents for follow-up with concerns about weight gain and medication management. Essence's SyndromeAssessment: Patient is awaiting insurance approval for Recorlev (levoketoconazole), a medication for Essence's syndrome. The approval process may take up to 2 months. Currently, the patient is on eplerenone for management of Essence's syndrome symptoms. Spironolactone was previously discontinued due to kidney function concerns. Kidney function has improved from a creatinine of 2.2 to 1.3, but we are avoiding reintroduction of spironolactone. A new drug, relucorolone, is expected to be available on November 27 and may not require additional compensatory medications.Plan:- Await insurance approval for Recorlev- Avoid reintroduction of spironolactone- Follow up on Recorlev approval status in 2 months if not approved sooner Type 2 Diabetes Mellitus with Weight GainAssessment: Patient reports weight gain, with a 2-pound increase noted. Current diabetes management includes Trulicity and insulin (Tresiba). The patient reports no noticeable effects from Trulicity. Fasting glucose was 122 mg/dL, and HbA1c is not provided but implied to be suboptimal. The patient is using an insulin pump with daytime basal rate of 1.1 units and nighttime rate of 1 unit. Continuous Glucose Monitoring (CGM) is in use, but the patient reports high glucose levels today. Given the weight gain and suboptimal glycemic control, a medication change is being considered.Plan:- Discontinue Trulicity due to ineffectiveness for weight loss and cardiovascular health- Trial Mounjaro (tirzepatide) samples as a replacement for Trulicity - Educate patient: Mounjaro is similar to Trulicity but may offer better weight loss and glycemic control- If Mounjaro is ineffective or not covered by insurance, consider switching to Ozempic (semaglutide)- Continue Tresiba insulin at current dose (nighttime administration)- Maintain current insulin pump settings: 1.1 units daytime basal rate, 1 unit nighttime basal rate- Continue use of Continuous Glucose Monitoring (CGM)- Monitor weight and glycemic control- Follow up to assess efficacy of medication changes and adjust treatment plan as needed Chronic Kidney Disease, ImprovedAssessment: Patient's kidney function has improved significantly, with creatinine decreasing from 2.2 to 1.3. This improvement allows for consideration of medications that were previously contraindicated. However, we are still avoiding medications that could potentially impact kidney function, such as spironolactone. Current potassium level is 4.4 mEq/L, which is within normal limits.Plan:- Continue monitoring kidney function and electrolytes- Maintain current medications that are kidney-friendly- Avoid reintroduction of spironolactone- Reassess medication options at future visits based on kidney function stability Spent 25 minutes preparing to see the patient (ex review of tests/chart), obtaining and / or reviewing separately obtained history, performing a medically appropriate examination and/or evaluation, counseling and educating the patient/family/patient care, ordering medications, tests, or procedures, referring and communicating with other health resident care associate, documenting clinical information in the electronic or other health record, independently interpreting results and communicating results to the patient/family/patient care and care coordinating patient plan. Patient alert and oriented x 4 and aware of discussion noted above and in agreeance to plan in management of type 2 dM/well controlled, mixed dyslipidemia, obesity/weight management and hypercortisolism. 09/27/2025 Other Carol is being managed for hypercortisolism with Recorlev therapy, presenting with worsening kidney function, hyponatremia, persistent nausea/vomiting, and hypoglycemic episodes requiring medication adjustments. Worsening kidney function on RecorlevAssessment: Creatinine has increased from baseline 1.4 to current elevated level since starting Recorlev therapy. Patient reports feeling weak and off-balance. Recorlev can manifest liver problems particularly in patients with underlying fatty liver disease, which may be contributing to kidney dysfunction. No history of prior liver problems or liver ultrasound documented.Plan:- Discontinue Recorlev (last dose taken this morning)- Order liver ultrasound to evaluate for fatty liver disease- Add ELF panel to laboratory workup- Repeat comprehensive metabolic panel in 2 weeks as her ALT/AST normal- Monitor kidney function closely HyponatremiaAssessm ent: Sodium has decreased from 135 to 127, approaching dangerous levels. Patient reports minimal urine output and difficulty maintaining oral intake due to nausea and vomiting. Hyponatremia can present with confusion and disorientation, though patient appears stable currently.Plan:- Restrict fluid intake to one liter per day while sodium remains low- Monitor for signs of confusion or disorientation- Emergency evaluation if sodium drops to 120 or if patient becomes excessively sleepy or difficult to arouse and who is present at visit today is aware he may need to take his to ER- Coordinate with Dr. Erwin regarding laboratory results and management Hypoglycemia on insulin therapyAssessment: Patient experiencing frequent hypoglycemic episodes with blood glucose dropping to 40-50 mg/dL throughout the day. Currently on insulin pump with basal rates of 1.1 units/hour during day and 1.0 units/hour at night. Patient reports needing to consume fluids to treat low blood sugars but experiences vomiting with oral intake. A1c is excellent at 6%.Plan:- Discontinue insulin pump -pod removed in clinic today- Reduce basal insulin rate to 0.5 units/hour if restarting insulin therapy-if glucose goes over 140 mg/dL consistently- Monitor blood glucose with Dexcom sensors- Contact provider if assistance needed with pump settings- If insulin restarted in future, use low dose of 0.3-0.4 units Nausea and vomitingAssessment: Patient reports persistent nausea and vomiting for approximately one month, eating only a couple of bites and having difficulty maintaining oral intake. Symptoms likely related to Recorlev and Mounjaro therapy. Patient has lost 35 pounds total since starting cortisol treatment, with 10 pounds lost recently.Plan:- Hold Mounjaro injection due this Wednesday- Consider resuming Mounjaro next Wednesday depending on symptom improvement- Symptoms should improve within a few days after stopping Recorlev- Continue Zofran as needed for nausea- Avoid fatty foods Diabetes managementAssessmen t: Patient has excellent glycemic control with A1c of 6% but experiencing frequent hypoglycemia. Currently on Mounjaro 5 mg (with 7.5 mg prescribed), metformin, and Farxiga 10 mg. Blood sugars may increase to 150s-160s after stopping insulin but this is acceptable given current hypoglycemic episodes.Plan:- Continue farxiga- Hold Mounjaro this week, consider resuming next Wednesday- Monitor blood glucose with Dexcom- Accept higher blood glucose levels temporarily while addressing hypoglycemia Spent 25 minutes preparing to see the patient (ex review of tests/chart), obtaining and / or reviewing separately obtained history, performing a medically appropriate examination and/or evaluation, counseling and educating the patient/family/patient care, ordering medications, tests, or procedures, referring and communicating with other health resident care associate, documenting clinical information in the electronic or other health record, independently interpreting results and communicating results to the patient/family/patient care and care coordinating patient plan. Patient alert and oriented x 4 and aware of discussion noted above and in agreeance to plan in management of well controlled type 2 DM (A1C of 6%), dyslipidemia, weight management, hypercortisolism and finding of worsening renal function and hyponatremia-need to assess function of liver. c Plan Of Treatment Pending Test Test Name Order Date Ultrasound : Gallbladder/liver Dexa Bone density 04/13/2024 -MRI BRAIN WWO 09/18/2024 CT adrenal gland W/WO 05/30/2024 COMP. METABOLIC 05/03/2025 Next Appt Details Provider Name:Sarah Kebede, 03:00:00 PM, [address] [place] [address], [phone], Insurance Providers Payer Name Payer Address Payer Phone Subscriber Number Group Number Insured Name Patient Relationship to Insured Coverage Start Date Coverage End Date [employer] [address] [place] [phone] [phone] [id number] APRIL STEELE Spouse - patient is the spouse of the insured Medical (General) History Medical History History ICD Code HYPERTENSION DIABETIES HIGH CHOLESTEROL Cushings syndrome Surgical History Surgery Date(Month/Year) RUPTURED OVARIAN CYST GALL BLADDER REMOVAL HERNIA REPAIR HYSTERECTONY Hospitalization History Reason Date(Month/Year) BROKEN FEMER BROKEN HIP BROKEN SHOULDER BROKEN ARM BROKEN BACK X 2 D&C X 6
--- OUTSIDE RECORDS SUMMARY | 2025-10-23 17:40 | XMS_ITS | Clinical Summary ---
Author Organization [facility] Address [address] [place] [address] Care Team Providers Care Data Base Design Analyst Name Role Phone Tasha Malone MD Primary Care Provider + Allergies Active Allergy Reactions Criticality Noted Date Comments Adhesive Rash Medium 12/22/2023 Adhesive Tape-Silicones Hydrocodone Hydrocodone-Acetaminophen Metronidazole Oxycodone Itching Low 09/23/2023 Medications aspirin 81 mg enteric coated tablet 1 tablet (81 mg total) daily 04/03/2013 Active amLODIPine (NORVASC) 5 mg tablet Take 1 tablet (5 mg total) by mouth daily Active atorvastatin (LIPITOR) 40 mg tablet Take 1 tablet (40 mg total) by mouth daily Active bisoprolol-hydr oCHLOROthiazide (ZIAC) 10-6.25 mg per tablet Take 2 tablets by mouth daily Active Trulicity 1.5 mg/0.5 mL pen injector inject 1.5 mg SQ once weekly x 90 days 10/05/2023 Active ergocalciferol (VITAMIN D) 50,000 unit capsule Take 1 capsule (50,000 Units total) by mouth once a week Active lisinopriL (PRINIVIL,ZESTR IL) 10 mg tablet Take 1 tablet (10 mg total) by mouth daily Active metFORMIN (GLUCOPHAGE) 1,000 mg tablet Take 1 tablet (1,000 mg total) by mouth 2 (two) times a day Active montelukast (SINGULAIR) 10 mg tablet Take 1 tablet (10 mg total) by mouth daily 10/11/2012 Active OLANZapine (ZyPREXA) 10 mg tablet Take 1 tablet (10 mg total) by mouth daily Active topiramate (TOPAMAX) 50 mg tablet Take 1 tablet (50 mg total) by mouth 2 (two) times a day Active venlafaxine XR (EFFEXOR-XR) 150 mg 24 hr capsule Take 1 capsule (150 mg total) by mouth daily Active Active Problems Problem Noted Date Diagnosed Date Allergic rhinitis 10/27/2023 Depressive disorder 10/27/2023 Fatigue 10/27/2023 Gastroesophageal reflux disease 10/27/2023 Injury of finger 10/27/2023 Lymphedema 10/27/2023 Osteoarthritis 10/27/2023 Panic disorder 10/27/2023 Rash 10/27/2023 Restless legs 10/27/2023 Fracture of humerus 10/03/2023 Mixed hyperlipidemia 03/16/2023 Obstructive sleep apnea syndrome 09/17/2021 Arthritis of left hip 11/13/2020 Trochanteric bursitis of left hip 11/13/2020 Vitamin D deficiency 01/03/2020 Osteopenia 08/09/2019 Overview (10/27/2023): DEXA 08/17 Acute urinary tract infection 12/23/2017 Closed fracture of right hip 10/29/2017 Umbilical hernia without obstruction and without gangrene 03/29/2017 Hypomagnesemia 11/04/2015 Preoperative state 02/26/2015 Overview (03/04/2017): Preoperative cardiovascular examination Coronary artery spasm 11/20/2014 Overview (03/04/2017): Coronary vasospasm Dyslipidemia 11/20/2014 Overview (03/04/2017): Dyslipidemia Diabetes mellitus 11/20/2014 Overview (03/04/2017): DM (diabetes mellitus) Benign hypertension 11/20/2014 Overview (03/04/2017): HTN (hypertension), benign Arthralgia of shoulder 05/23/2013 Disorder of vein 04/03/2013 Lumbago 11/30/2012 Tingling of skin 11/30/2012 Arthralgia of hip 10/11/2012 Social History Tobacco Use Types Packs/Day Years Used Date Smoking Tobacco: Former Alcohol Use Standard Drinks/Week Comments Yes 0 (1 standard drink = 0.6 oz pur e alcohol) Personal Safety Answer Date Recorded Getting School Help Needed Not on file 09/24 Comments Unknown Sex and Gender Information Value Date Recorded Sex Assigned at Not on file Legal Sex Female 4:01 PM CDT Gender Identity Not on file Sexual Orientation Not on file Last Filed Vital Signs Vital Sign Reading Time Taken Comments Blood Pressure 151/76 09/23/2023 1:20 PM CDT Pulse 70 09/23/2023 1:20 PM CDT Temperature 36.7 C (98.1 F) 09/23/2023 10:37 AM CDT Respiratory Rate 15 09/23/2023 1:20 PM CDT Oxygen Saturation 93% 09/23/2023 1:20 PM CDT Inhaled Oxygen Concentration - - Weight 93.9 kg (207 lb) 09/23/2023 10:37 AM CDT Height 167.6 cm (5' 6) 09/23/2023 10:37 AM CDT Body Mass Index 33.41 09/23/2023 10:37 AM CDT Plan of Treatment Health Maintenance Due Date Last Done Comments Albumin Creatinine Ratio, Urine 1948 Depression Screening 1948 Fall Risk Assessment 1948 Hemoglobin A1C 1948 Hepatitis C Screening 1950 Osteoporosis Screening-Bone Density Scan 1948 Dilated Eye Exam 1948 Foot Exam 1948 Lipid Panel 1948 Pneumococcal vaccine 65+ (1 of 2 - PCV) 1967 08/20/2011 Zoster Vaccine (1 of 2) 1998 DTaP/Tdap/Td Vaccine (1 - Tdap) 03/20/2003 3 Well Visit 65+ 2013 eGFR 09/23/2024 09/23/2023 Influenza Vaccine (#1) 2025 , 08/23/2018, 10/17/2014, Additional history exists Hepatitis B Screening Completed 02/09/2005 , 04/16/2003, 03/19/2003 Procedures Procedure Name Priority Date/Time Associated Diagnosis Comments EGFR Routine 09/23/2023 10:48 AM CDT from Last 3 Months or Most Recently Relevant to Health Maintenance Results * (ABNORMAL) eGFR (09/23/2023 10:48 AM CDT) eGFR 57(L) 90 - 130 mL/min/1. 73 m2 MITZI SUAZO Comment: Interpretive Data Reference Interval Normal >/= 90 mL/min/1.73m2 Mildly decreased* 60 - 89 mL/min/1.73m2 Mildly to moderately decreased 45 - 59 mL/min/1.73m2 Moderately to severely decreased 30 - 44 mL/min/1.73m2 Severely decreased 15 - 29 mL/min/1.73m2 Kidney Failure < 15 mL/min/1.73m2 *Relative to young adult level Estimated glomerular filtration rate is determined by the 2020 CKD-EPI equation recommended by the National Kidney Foundation (A Unifying Approach to GFR Estimation: Recommendations of the NKF-ASK Task Force on Reassessing the Inclusion of Race in Diagnosing Kidney Disease, JASN 2020). The CKD-EPI equation should not be used for patients with unstable renal function and has not been validated in children and those over 70. Current interpretive data was last reviewed 2021. Blood 09/23/2023 10:4 8 AM CDT 09/23/2023 10:59 AM CDT us Matteo Lara MD LAB BLOOD ORDERABLES Final Resul t MITZI SUAZO [facility] [place] [address] from Last 3 Months or Most Recently Relevant to Health Maintenance Insurance MEDICARE COUNTS INCLUDE 234 BEDS AT [facility] [id number] COUNTS INCLUDE 234 BEDS AT THE [facility] [id number] Care Teams Data Base Design Analyst Relationship Specialty Start Date End Date Tasha Malone MD [address] [place] [address] [place] [address] PCP - General Family Medicine 10/27/23
--- OUTSIDE RECORDS SUMMARY | 2025-10-23 17:40 | XMS_ITS | Clinical Summary ---
Author Organization [facility] , [facility] Address [address] [address] Phone Care Team Providers Care Patient Care Director Name Role Phone Sarah Kebede MD Primary Care Provider [phone] Social History Tobacco Use Types Packs/Day Years Used Date Smoking Tobacco: Never Assessed Comments Unknown Sex and Gender Information Value Date Recorded Sex Assigned at Not on file Legal Sex Female 3:16 PM EDT Gender Identity Not on file Sexual Orientation Not on file Plan of Treatment Health Maintenance Due Date Last Done Comments Pneumococcal Vaccine: 50+ Years (1 of 2 - PCV) 1967 08/20/2011 Diabetes: Hemoglobin A1C 03/15/2025 Diabetes: Ophthalmology Exam 03/15/2025 Diabetes: Pedal Pulse Checked 03/15/2025 Diabetes: Sensory Foot Exam 03/15/2025 Diabetes: Visual Foot Exam 03/15/2025 Influenza Vaccine (#1) 2025 , 08/23/2018 Hepatitis B Vaccine Aged Out No longe r eligible based on patient's age to complete this topic Insurance [place] [address] [employer] Care Teams Patient Care Director Relationship Specialty [place] [address] [place] [address] PCP - General Endocrinology 03/15/25
--- OUTSIDE RECORDS SUMMARY | 2025-10-23 17:40 | XMS_ITS | Clinical Summary ---
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 Gender Identity Not on file Sexual Orientation Not on file Plan of Treatment Health Maintenance Due Date Last Done Comments Hepatitis C Virus (HCV) Screening 1950 TdaP Immunization 1948 Pneumococcal Immunization (50+ years) (1 of 1 - PCV) 1998 08/20/2011 Zoster Immunization (1 of 2) 1998 Respiratory Syncytial Virus (RSV) Immunization (Adult) (1 - 1-dose 75+ series) 2023 Influenza Immunization (#1) 07/30/202503/2020, 01/02/2020, 08/23/2018, Additional history exists SARS-COV-2 Immunization ( - season) 2025 DTaP/Tdap/Td Immunization Discontinued 03/19/2003 Hepatitis B Immunization Completed 005, 04/16/2003, 03/19/2003 Human Papillomavirus (HPV) Immunization Aged Out No longer eligible based on patient's age to complete this topic Meningococcal Immunization (ACWY) Aged Out No longer eligible based on patient's age to complete this topic Rotavirus Immunization Aged Out No lo nger eligible based on patient's age to complete this topic
--- NOTE | 2025-10-23 17:55 | ED.GENADULT ---
HPI - General Adult General Chief complaint: Unspecified <Shelby Conner PA-C - Last Filed: 10/25/25 17:17> Stated complaint: Constipation x 4 weeks <Shelby Conner PA-C - Last Filed: 10/25/25 17:17> Time Seen by Provider: 10/23/25 17:55 <Shelby Conner PA-C - Last Filed: 10/25/25 17:17> Focused HPI: This is a 75 year old female that presents to the ER for constipation. Reports she had tried several over the counter medications with little relief. Reports some nausea and vomiting. Reports her last BM was 4 weeks ago. GENERAL: Well-appearing, well-nourished, and in no acute distress. HEAD: Normocephalic, atraumatic. CHEST: No respiratory distress. HEART: Regular rate NEURO: ?Alert and oriented x3. Patient screened in triage and initial orders placed.? ?Additional care and disposition to be based upon?diagnostic testing and treatment. <Shelby Conner PA-C - Last Filed: 10/25/25 17:17> History of Present Illness HPI narrative: Agree with the HPI above <Paras Nova MD - Last Filed: 10/24/25 03:31> Related Data Home medications: Home Medications ?Medication ?Instructions ?Recorded ?Confirmed ?Last Taken ?Type amlodipine 5 mg tablet 5 mg PO DAILY 11/12/21 10/20/25 Unknown History ergocalciferol (vitamin D2) 1,250 1,250 mcg PO WEEKLY 11/12/21 10/20/25 Unknown History mcg (50,000 unit) capsule montelukast 10 mg tablet 10 mg PO DAILY 11/12/21 10/20/25 Unknown History olanzapine 10 mg tablet 10 mg PO DAILY 11/12/21 10/20/25 Unknown History oxybutynin chloride 5 mg tablet 5 mg PO TID 11/12/21 10/20/25 Unknown History topiramate 50 mg tablet 50 mg PO BID 11/12/21 10/20/25 Unknown History venlafaxine 150 mg tablet,extended 150 mg PO DAILY 11/12/21 10/20/25 Unknown History release 24 hr dulaglutide 1.5 mg/0.5 mL 1.5 mg subcut WEEKLY 11/23/24 10/20/25 Unknown History subcutaneous pen injector (Trulicity) icosapent ethyl 1 gram capsule 1 g PO QID 11/23/24 10/20/25 Unknown History pantoprazole 40 mg tablet,delayed 40 mg PO QAM 11/23/24 10/20/25 Unknown History release rosuvastatin 40 mg tablet 40 mg PO DAILY 11/23/24 10/20/25 Unknown History insulin aspart U-100 100 unit/mL 0.09 unit continuous IV infusion 06/07/25 10/20/25 Unknown History subcutaneous solution (Novolog U-100 Insulin aspart) aspirin 81 mg tablet 81 mg PO DAILY 10/10/25 10/20/25 Unknown History tirzepatide 5 mg/0.5 mL 5 mg subcut .every other week 10/10/25 10/20/25 Unknown History subcutaneous pen injector (Mounjaro) <Shelby Conner PA-C - Last Filed: 10/25/25 17:17> Allergies/adverse reactions: Allergies Allergy/AdvReac Type Severity Reaction Status Date / Time hydrocodone Allergy Mild ITCHING Verified 10/10/25 12:04 adhesive Allergy Unknown BLISTERS Verified 10/10/25 12:04 miconazole Allergy Unknown Unknown Verified 10/10/25 12:04 oxycodone Allergy Unknown Unknown Verified 10/10/25 12:04 <Shelby Conner PA-C - Last Filed: 10/25/25 17:17> Review of Systems Review of Systems: as reviewed above in HPI <Paras Nova MD - Last Filed: 10/24/25 03:31> [facility] Past Medical History Medical History: Medical History Lung nodule CT surveillance 10/2012-10/2014 showed 2 years stability. Ovarian cyst rupture Allergic rhinitis HTN (hypertension) HLD (hyperlipidemia) Type 2 diabetes mellitus Depressive disorder RLS (restless legs syndrome) GERD (gastroesophageal reflux disease) Lymphedema Osteopenia Arthritis Vitamin D deficiency <Shelby Conner PA-C - Last Filed: 10/25/25 17:17> Surgical History Surgical History: Surgical History H/O rectocele repair Hx of cholecystectomy H/O total hysterectomy <Shelby Conner PA-C - Last Filed: 10/25/25 17:17> Family History Family History: Family History Father Cerebrovascular accident Mother Family history of malignant neoplasm of ovary Patient's mother is <Shelby Conner PA-C - Last Filed: 10/25/25 17:17> Social History Social History: Social History Social History: About 10 pack years smoking, on/off Smoking packs per day: 1 Smoking cigarettes per day: 20.0 Years smoked: 10 Smoking pack-years: 10.00 Smoking status: Former smoker Second hand tobacco smoke exposure: No Smoking end date: 11/29/71 Alcohol intake: current Alcohol use details: rarely Substance use type: does not use Lack of Transportation: No Lack of Food: Never True Current Housing: I Have Housing Concerned About Future Housing: No Difficulty Paying Gas/Electric Bills: No Difficulty Paying for Meds: No Currently Unemployed: No Education: Associate Degree Difficulty w/ Childcare or Family Care: No <Shelby Conner PA-C - Last Filed: 10/25/25 17:17> Exam Narrative: GENERAL: [Well-appearing, well-nourished, and in no acute distress.] HEAD: [Normocephalic, atraumatic.] EYES: [PERRLA and EOMI.] ENT: Nares clear, no rhinorrhea or epistaxis. Mucous membranes moist. NECK: Supple. CHEST: [Clear to auscultation. No respiratory distress.] HEART: [Regular rate and rhythm]. No murmur heard. [Normal peripheral pulses.] ABDOMEN: soft, nontender, nondistended, no rigidity, guarding or masses. EXTREMITIES: Normal range of motion. [No edema.] SKIN: Warm, dry, no rash. NEURO: [No focal deficits]. Alert and oriented [x3.] PSYCH: [Normal mood and affect.] <Paras Nova MD - Last Filed: 10/24/25 03:31> Course Vital Signs Vital signs: Vital Signs Temperature 97.7 F 10/23/25 17:39 Pulse Rate 91 10/23/25 17:39 Respiratory Rate 16 10/23/25 17:39 Blood Pressure 183/97 H 10/23/25 17:39 Pulse Oximetry 99 10/23/25 17:39 Temperature 97.7 F 10/23/25 17:39 Pulse Rate 91 10/23/25 17:39 Respiratory Rate 16 10/23/25 17:39 Blood Pressure 183/97 H 10/23/25 17:39 Pulse Oximetry 99 10/23/25 17:39 <Shelby Conner PA-C - Last Filed: 10/25/25 17:17> Vital Signs Temperature 97.7 F 10/23/25 17:39 Pulse Rate 91 10/23/25 17:39 Respiratory Rate 16 10/23/25 17:39 Blood Pressure 183/97 H 10/23/25 17:39 Pulse Oximetry 99 10/23/25 17:39 Temperature 97.7 F 10/23/25 17:39 Pulse Rate 91 10/23/25 17:39 Respiratory Rate 16 10/23/25 17:39 Blood Pressure 183/97 H 10/23/25 17:39 Pulse Oximetry 99 10/23/25 17:39 <Paras Nova MD - Last Filed: 10/24/25 03:31> Medical Decision Making MDM Narrative Medical decision making narrative: 75-year-old female presenting to the emergency depart with constipation for 4 weeks. Has tried multiple laxatives and stool softeners at home. Tried magnesium citrate today without any result. Recently on Wednesday RO that was taken off 2 weeks ago. Spoke to her GI doctor today who recommended going to the ER to rule out blockages. Patient is hemodynamically stable albeit mildly hypertensive without symptoms. She has a soft nontender nondistended abdomen. CT scan obtained shows no signs of obstruction but there is fecal impaction in the rectosigmoid colon. Patient offered treatments with an enema and also given magnesium citrate here. No urgent or emergent concerns raised she left follow-up with GI after treatment. Lab showed no leukocytosis or anemia. Normal platelet count. Electrolytes are unremarkable. Baseline CKD. Better than prior. Normal glucose. Normal LFTs. Normal lipase. CT scan shows no acute findings besides rectal fecal impaction. No evidence of bowel obstruction. Old compression fractures noted. Patient had great results with the enema. [place] significant improvement and relief of symptoms. Safe for discharge. <Paras Nova MD - Last Filed: 10/24/25 03:31> Medical Records Medical records reviewed: Yes I reviewed the external patient's medical records. <Paras Nova MD - Last Filed: 10/24/25 03:31> Vital Signs Vital Signs: Vital Signs Temperature 97.7 F 10/23/25 17:39 Pulse Rate 91 10/23/25 17:39 Respiratory Rate 16 10/23/25 17:39 Blood Pressure 183/97 H 10/23/25 17:39 Pulse Oximetry 99 10/23/25 17:39 Temperature 97.7 F 10/23/25 17:39 Pulse Rate 91 10/23/25 17:39 Respiratory Rate 16 10/23/25 17:39 Blood Pressure 183/97 H 10/23/25 17:39 Pulse Oximetry 99 10/23/25 17:39 <Shelby Conner PA-C - Last Filed: 10/25/25 17:17> Vital Signs Temperature 97.7 F 10/23/25 17:39 Pulse Rate 91 10/23/25 17:39 Respiratory Rate 16 10/23/25 17:39 Blood Pressure 183/97 H 10/23/25 17:39 Pulse Oximetry 99 10/23/25 17:39 Temperature 97.7 F 10/23/25 17:39 Pulse Rate 91 10/23/25 17:39 Respiratory Rate 16 10/23/25 17:39 Blood Pressure 183/97 H 10/23/25 17:39 Pulse Oximetry 99 10/23/25 17:39 <Paras Nova MD - Last Filed: 10/24/25 03:31> Lab Data Lab results reviewed: Yes I reviewed the patient's lab results. <Paras Nova MD - Last Filed: 10/24/25 03:31> Result diagrams: 10/23/25 18:12 10/23/25 18:12 <Shelby Conner PA-C - Last Filed: 10/25/25 17:17> Labs: Lab Results 10/23/25 Range/Units 18:12 WBC 8.6 (4.5-10.0) K/mm3 RBC 4.22 (4.2-5.4) M/mm3 Hgb 12.5 (12.0-15.0) g/dL Hct 37.7 (37.0-47.0) % MCV 89.3 (80-100) fl MCH 29.6 (26-34) pg MCHC 33.2 (32-36) g/dl RDW 13.8 (11.5-14.5) % Plt Count 205 (150-375) k/mm3 MPV 10.8 H (7.4-10.4) fl Immature Gran % (Auto) 0.2 (0-0.5) % Neut % (Auto) 69.0 (45.5-73.1) % Lymph % (Auto) 22.0 (18.3-44.2) % [place] % (Auto) 7.1 (2.6-8.5) % Eos % (Auto) 1.2 (0-4.4) % Baso % (Auto) 0.5 (0.2-1.2) % Lymph # (Auto) 1.89 (0.9-3.2) K/mm3 [place] # (Auto) 0.6 (0.1-0.6) K/mm3 Eos # (Auto) 0.1 (0-0.3) K/mm3 Baso # (Auto) 0.0 (0.0-0.1) K/mm3 Abs Immat Gran (auto) 0.02 (0.00-0.031) K/mm3 Absolute Neuts (auto) 6.0 (1.3-6.7) K/mm3 Absolute Nucleated RBC 0.000 (0.0-0.012) K/mm3 Nucleated RBC % 0.0 (0.0-0.2) % Sodium 138 (137-145) mmol/L Potassium 4.2 (3.4-5.0) mmol/L Chloride 106 (98-107) mmol/L Carbon Dioxide 22 (22-30) mmol/L Anion Gap 10 (4-12) mmol/L BUN 22 H (7-17) mg/dL Creatinine 1.53 H (0.7-1.0) mg/dL Estim Creat Clear Calc 26 ml/min Estimated GFR 33 L (59 - ) Glucose 131 H (65-110) mg/dL Calcium 9.7 (8.4-10.2) mg/dL Total Bilirubin 0.7 (0.2-1.3) mg/dL AST 33 (14-36) U/L ALT 26 (6-35) U/L Alkaline Phosphatase 62 (38-126) U/L Total Protein 7.2 (6.3-8.2) g/dL Albumin 4.2 (3.5-5.1) g/dL Lipase 52 (23-300) U/L <Shelby Conner PA-C - Last Filed: 10/25/25 17:17> Lab Results 10/23/25 Range/Units 18:12 WBC 8.6 (4.5-10.0) K/mm3 RBC 4.22 (4.2-5.4) M/mm3 Hgb 12.5 (12.0-15.0) g/dL Hct 37.7 (37.0-47.0) % MCV 89.3 (80-100) fl MCH 29.6 (26-34) pg MCHC 33.2 (32-36) g/dl RDW 13.8 (11.5-14.5) % Plt Count 205 (150-375) k/mm3 MPV 10.8 H (7.4-10.4) fl Immature Gran % (Auto) 0.2 (0-0.5) % Neut % (Auto) 69.0 (45.5-73.1) % Lymph % (Auto) 22.0 (18.3-44.2) % [place] % (Auto) 7.1 (2.6-8.5) % Eos % (Auto) 1.2 (0-4.4) % Baso % (Auto) 0.5 (0.2-1.2) % Lymph # (Auto) 1.89 (0.9-3.2) K/mm3 [place] # (Auto) 0.6 (0.1-0.6) K/mm3 Eos # (Auto) 0.1 (0-0.3) K/mm3 Baso # (Auto) 0.0 (0.0-0.1) K/mm3 Abs Immat Gran (auto) 0.02 (0.00-0.031) K/mm3 Absolute Neuts (auto) 6.0 (1.3-6.7) K/mm3 Absolute Nucleated RBC 0.000 (0.0-0.012) K/mm3 Nucleated RBC % 0.0 (0.0-0.2) % Sodium 138 (137-145) mmol/L Potassium 4.2 (3.4-5.0) mmol/L Chloride 106 (98-107) mmol/L Carbon Dioxide 22 (22-30) mmol/L Anion Gap 10 (4-12) mmol/L BUN 22 H (7-17) mg/dL Creatinine 1.53 H (0.7-1.0) mg/dL Estim Creat Clear Calc 26 ml/min Estimated GFR 33 L (59 - ) Glucose 131 H (65-110) mg/dL Calcium 9.7 (8.4-10.2) mg/dL Total Bilirubin 0.7 (0.2-1.3) mg/dL AST 33 (14-36) U/L ALT 26 (6-35) U/L Alkaline Phosphatase 62 (38-126) U/L Total Protein 7.2 (6.3-8.2) g/dL Albumin 4.2 (3.5-5.1) g/dL Lipase 52 (23-300) U/L <Paras Nova MD - Last Filed: 10/24/25 03:31> Imaging Data Attestation: I personally reviewed and interpreted this imaging study as follows: <Paras Nova MD - Last Filed: 10/24/25 03:31> My impression: Impressions Abdomen/Pelvis CT 10/23/25 19:07 IMPRESSION: 1. No acute findings noted in the upper abdomen and pelvis. 2. Significant fecal impaction of the rectosigmoid colon. 3. Osteopenic vertebrae. Compression fractures of L1 and L5 vertebrae of undetermined age. <Paras Nova MD - Last Filed: 10/24/25 03:31> Discharge Plan Discharge Clinical Impression: Constipation Qualifiers: Constipation type: unspecified constipation type Qualified Code(s): K59.00 - Constipation, unspecified <Shelby Conner PA-C - Last Filed: 10/25/25 17:17> Patient Disposition: Home <Shelby Conner PA-C - Last Filed: 10/25/25 17:17> Condition: Stable <Shelby Conner PA-C - Last Filed: 10/25/25 17:17> Instructions: Antibiotic Form, Constipation (DC) <Shelby Conner PA-C - Last Filed: 10/25/25 17:17> Additional Instructions: Return with any emergencies. Continue MiraLax and Mag citrate as needed at home. Follow-up with your regular doctors. <Shelby Conner PA-C - Last Filed: 10/25/25 17:17> Patient Language: Sri [place]ankan <Shelby Conner PA-C - Last Filed: 10/25/25 17:17> Prescriptions: No Action amlodipine 5 mg tablet 5 mg PO DAILY ergocalciferol (vitamin D2) 1,250 mcg (50,000 unit) capsule 1,250 mcg PO WEEKLY montelukast 10 mg tablet 10 mg PO DAILY olanzapine 10 mg tablet 10 mg PO DAILY oxybutynin chloride 5 mg tablet 5 mg PO TID topiramate 50 mg tablet 50 mg PO BID venlafaxine 150 mg tablet extended release 24hr 150 mg PO DAILY insulin aspart U-100 [Novolog U-100 Insulin aspart] 100 unit/mL solution 0.09 unit continuous IV infusion aspirin 81 mg tablet 81 mg PO DAILY Mounjaro 5 mg/0.5 mL pen injector 5 mg subcut .every other week pantoprazole 40 mg tablet,delayed release (DR/EC) 40 mg PO QAM rosuvastatin 40 mg tablet 40 mg PO DAILY icosapent ethyl 1 gram capsule 1 g PO QID Trulicity 1.5 mg/0.5 mL pen injector 1.5 mg subcut WEEKLY <Shelby Conner PA-C - Last Filed: 10/25/25 17:17> Follow-up/Referrals: Vaibhav,JOHNATHAN Porter [Primary Care Provider, Unknown] <Shelby Conner PA-C - Last Filed: 10/25/25 17:17> Time of Disposition: 22:56 <Shelby Conner PA-C - Last Filed: 10/25/25 17:17> 22:56 <Paras Nova MD - Last Filed: 10/24/25 03:31>
--- NOTE | 2025-10-23 18:00 | PC.NURSE ---
RN ambulated with patient to bathroom, placed a hat in toilet for urine sample and patient missed while urinating. RN unable to collect a urine at this time.
[2025-10-23 18:24] LABS: Hematocrit 37.7 % (37.0-47.0); Hemoglobin 12.5 g/dL (12.0-15.0); Immature Granulocyte Percent A 0.2 % (0-0.5); Lymphocytes Absolute Auto 1.89 K/mm3 (0.9-3.2); Mean Corpuscular HGB Conc 33.2 g/dl (32-36); Mean Corpuscular Hemoglobin 29.6 pg (26-34); Mean Corpuscular Volume 89.3 fl (80-100); Nucleated Red Blood Cells Absolute Auto 0.000 K/mm3 (0.0-0.012); Nucleated Red Blood Cells Perc 0.0 % (0.0-0.2); Platelet Count Result 205 k/mm3 (150-375); Red Blood Count 4.22 M/mm3 (4.2-5.4); White Blood Count 8.6 K/mm3 (4.5-10.0)
[2025-10-23 18:36] LABS: Alanine Aminotransferase 26 U/L (6-35); Albumin Level 4.2 g/dL (3.5-5.1); Alkaline Phosphatase 62 U/L (38-126); Anion Gap 10 mmol/L (4-12); Aspartate Amino Transferase 33 U/L (14-36); Bilirubin,Total 0.7 mg/dL (0.2-1.3); Blood Urea Nitrogen 22 mg/dL (7-17); Calcium 9.7 mg/dL (8.4-10.2); Carbon Dioxide 22 mmol/L (22-30); Chloride 106 mmol/L (98-107); Estimated CRCL calculation 26 ml/min; Estimated Glomerular Filt Rate 33; Glucose 131 mg/dL (65-110); Lipase 52 U/L (23-300); Potassium 4.2 mmol/L (3.4-5.0); Sodium 138 mmol/L (137-145); Total Protein 7.2 g/dL (6.3-8.2)
--- OUTSIDE RECORDS SUMMARY | 2025-10-23 20:28 | XMS_ITS | Clinical Summary ---
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
--- OUTSIDE RECORDS SUMMARY | 2025-10-23 20:28 | XMS_ITS | Clinical Summary ---
Author Organization [facility] Address [address] [place] [address] Care Team Providers Care [employer] Jointer Name Role Phone Tasha Malone MD Primary [...] ORDERABLES Final Resul t MITZI SUAZO [facility] Department [place] [address] from Last 3 Months or Most Recently Relevant to Health Maintenance Insurance MEDICARE [facility] [id number] [facility] [id number] Care Teams [employer] Jointer Relationship Specialty Start Date End Date Tasha Malone MD [address] [place] [address] [place] [address] PCP - General Family Medicine 10/27/23
--- OUTSIDE RECORDS SUMMARY | 2025-10-23 20:28 | XMS_ITS | Clinical Summary ---
Author Organization [facility] , [facility] Address [address] [address] Phone Care Team Providers Care Business Continuity Consultant Name Role Phone Sarah Kebede MD Primary Care Provider [phone] Social History Tobacco Use Types Packs/Day Years [...] patient's age to complete this topic Insurance [facility] [place] [address] [email or web address] Care Teams Business Continuity Consultant Relationship Specialty [place] [id number] [place] [address] PCP - General Endocrinology 03/15/25
[2025-10-23] MEDS: MAGNESIUM CITRATE 300 ML BTL PO (20:44)
== END 2025-10-23 23:02 | disposition home or self-care (01) ==
PROVIDERS: Physician Assistant; Emergency Provider Student in an Organized Health Care Education/Training Program; PCP Physician Assistant
DX: K59.00 Constipation, unspecified (principal); R91.1 Solitary pulmonary nodule; I10 Essential (primary) hypertension; E78.5 Hyperlipidemia, unspecified; E11.9 Type 2 diabetes mellitus without complications; F32.A Depression, unspecified; G25.81 Restless legs syndrome; K21.9 Gastro-esophageal reflux disease without esophagitis; M19.90 Unspecified osteoarthritis, unspecified site
CPT/HCPCS: 36415; 74177; 80053; 83690; 85025; 99284; A9270; Q9967

== ENCOUNTER 2025-10-30 09:50 | Outpatient (CLI) | payer OTHER, SELFPAY ==
[2025-10-30] MEDS: COSYNTROPIN 0.25 MG/ML VIAL IM (10:05)
--- OUTSIDE RECORDS SUMMARY | 2025-10-30 10:40 | XMS_ITS | Clinical Summary ---
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
--- OUTSIDE RECORDS SUMMARY | 2025-10-30 10:40 | XMS_ITS | Clinical Summary ---
Author Organization [facility] Address [address] [place] [address] Care Team Providers Care Gate Attendant Name Role Phone Tasha Malone MD Primary [...] ORDERABLES Final Resul t MITZI SUAZO [facility] [place] [address] from Last 3 Months or Most Recently Relevant to Health Maintenance Insurance MEDICARE [facility] [id number] [facility] [id number] Care Teams Gate Attendant Relationship Specialty Start Date End Date Tasha Malone MD [address] [place] [address] [place] [address] PCP - General Family Medicine 10/27/23
[2025-10-30 11:09] LABS: Hematocrit 39.9 % (37.0-47.0); Hemoglobin 12.6 g/dL (12.0-15.0); Mean Corpuscular HGB Conc 31.6 g/dl (32-36); Mean Corpuscular Hemoglobin 29.5 pg (26-34); Mean Corpuscular Volume 93.4 fl (80-100); Platelet Count Result 157 k/mm3 (150-375); Red Blood Count 4.27 M/mm3 (4.2-5.4); White Blood Count 7.0 K/mm3 (4.5-10.0)
[2025-10-30 12:18] LABS: Cortisol 60 Minute 28.60 ug/dL
== END 2025-10-30 09:51 | disposition home or self-care (01) ==
LOC: ANHLAB 09:52
PROVIDERS: PCP Physician Assistant; Visit Provider Internal Medicine Nephrology
DX: R94.4 Abnormal results of kidney function studies (principal); R11.0 Nausea; R79.89 Other specified abnormal findings of blood chemistry; E87.1 Hypo-osmolality and hyponatremia; Z79.899 Other long term (current) drug therapy
CPT/HCPCS: 36415; 82533; 85027; 96372; J0834

== ENCOUNTER 2025-11-16 15:35 | Outpatient (CLI) | payer OTHER, SELFPAY ==
--- NOTE | ~2025-11-16 | MR_ITS ---
EXAMINATION: MR brain/brain stem wo/w con DATE: 11/16/2025 16:34 INDICATION: Benign neoplasm of meninges, unspecified. TECHNIQUE: Magnetic resonance imaging (MRI) of the brain and brainstem was performed without and with 14 mL MultiHance intravenous contrast. COMPARISON: Brain MRI 01/16/2025 FINDINGS: There are scattered areas of nonspecific increased T2-weighted signal intensity in the cerebral white matter without change, which is within normal limits for the patient's age. There is a 1.8 x 1.4 cm enhancing mass in right cerebellopontine angle with low signal on T1 and T2-weighted imaging. There is a 2.2 x 1.3 cm enhancing extra-axial mass overlying left frontal lobe abutting the falx, consistent with a meningioma. There is an 8 x 4 mm enhancing extra-axial mass medial to right occipital lobe abutting the falx, consistent with a meningioma. There is no acute ischemic infarct or intracranial hemorrhage. The ventricles are normal in size. The orbits are normal. There is mild mucosal th ickening in the paranasal sinuses. The mastoid air cells are normal. IMPRESSION: 1. Stable 1.8 cm mass in right cerebellopontine angle, most likely a meningioma. 2. 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 3. Stable 8 mm parafalcine meningioma abutting right occipital lobe. Reviewed, dictated and finalized at location [facility] IMPRESSION: 1. Stable 1.8 cm mass in right cerebellopontine angle, most likely a meningioma . 2. 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 3. Stable 8 mm parafalcine meningioma abutting right occipital lobe.
== END 2025-11-16 15:36 | disposition home or self-care (01) ==
PROVIDERS: PCP Physician Assistant; Visit Provider Neurological Surgery
DX: D32.9 Benign neoplasm of meninges, unspecified (principal); R03.0 Elevated blood-pressure reading, without diagnosis of hypertension
CPT/HCPCS: 70553; A9577